=== PATIENT | male | born 1960 | race Caucasian/White ===

== ENCOUNTER → 2017-02-26 | Outpatient (CLI) | payer BC ==
[~2017-02-26] VITALS: Ht 167.6 cm; Wt 78.9 kg
[~2017-02-26] MED LIST: AUGMENTIN 875-1 EACH PO; ELIDEL CREAM 1%30 G1 TOP; FISH OIL 1,001000 M2 PO; FLEXERIL PO; FLOMAX0.4 MG PO; GEMFIBROZIL 60600 MG PO; GRALISE600 MG PO; HYDROCODONE-AP1 EA11 PO; MOBIC15 MG PO; NABUMETONE 500500 M1 PO; NEURONTIN 300300 M1 PO; NEURONTIN600 MG PO; NORCO 5-325 TA1 EACH PO; PREDNISONE 20 M20 MG PO; TRAMADOL 50 MG50 MG PO; VALACYCLOVIR1000 MG PO; VESICARE10 M1 PO
--- NOTE | ~2017-02-26 | HPC ---
[facility] [address] [place] [address] PAIN MANAGEMENT CONSULTATION Name: PAUL CACERES Room #: REG [facility] Noble.#: [id number] Admission: 02/26/17 Attend Phys: Avni Ordonez DO Discharge: Date of : 64 Report #: [id number] THIS REPORT FOR: //name// CC: Avni Pineda MD DATE OF SERVICE: 02/26/2017 REFERRING PHYSICIAN: Montse Pineda M.D. CHIEF COMPLAINT: Low back pain, lower extremity pain and paresthesias. HISTORY OF PRESENT ILLNESS: As you know, the patient is a very pleasant 56-year-old male who returns today in followup visit for medication management. The patient is being treated for symptomatic lumbar radiculopathy secondary to lumbosacral spondylosis with radicular components. The patient indicates good analgesic benefit with current medication management. He is denying any side effects of the medication. He states that he continues to work and is able to participate in daily activities with the use of the medication. He returns today requesting refill of the therapy. ALLERGIES: NABUMETONE. CURRENT MEDICATIONS: Hydrocodone, gabapentin, VESIcare, acyclovir, Elidel, omega 3 fish oil. SOCIAL HISTORY: The patient denies tobacco, alcohol, IV or illicit drug use. He is working, not receiving workmen's compensation. He is accompanied by his who is present in room today. IMAGING: No imaging available. PHYSICAL EXAMINATION: VITAL SIGNS: Blood pressure 150/76, pulse 54, respiratory rate 14, unlabored. The patient 99% on room air. Height 5 feet 6 inches tall, weight 174 pounds, BMI calculated 28.1. GENERAL: Well developed, well nourished, well hydrated, 56-year-old male. He appears stated age. He is placing current pain score at approximately 6/10. HEENT: Normocephalic, atraumatic. Pupils equal, round, reactive to light. Extraocular muscles are intact. EXTREMITIES: Show no clubbing, no cyanosis, no edema. MUSCULOSKELETAL: Seated straight leg raising negative. Supine straight leg raising positive on the left. Socorro's test negative. Modified Gaenslen's positive for axial low back pain. Gait, mildly antalgic favoring left lower extremity over right. He is not using an assistive device. [facility] and [address] [address] PAIN MANAGEMENT CONSULTATION Name: PAUL CACERES Room #: REG DARCY Lynne#: [id number] Admission: 02/26/17 Attend Phys: Avni Ordonez DO Discharge: Date of : 64 Report #: [id number] tone equal and symmetrical in lower extremities. ASSESSMENT: 1. Symptomatic lumbar radiculopathy. 2. Lumbosacral spondylosis with radicular symptoms. 3. Chronic intractable pain. PLAN: 1. The patient returns today in followup visit for medication management. The patient indicates pain is a level of 6/10 today. He indicates he has been quite active over the past couple of weeks and this has intensified his symptoms. He returns today requesting refill on medication. 2. The patient will submit urine drug screen as part of our opioid contract. The patient will undergo the urine drug screen today. We will review the findings once they are available. We will contact the patient with findings. 3. The patient was provided a prescription of gabapentin 600 mg dose 2 tabs p.o. at bedtime. I have given the patient #60 tablets with 2 refills, 3 months' worth of medication. 4. The patient was provided a refill prescription of hydrocodone 7.5/325 one tab p.o. q. 8 hours p.r.n. for pain, I have given the patient #90, releases of today, 4 weeks from today, 8 weeks from today, 3 months' worth of medication. 5. The patient will return to our clinic in 3 months for medication management, earlier if interventional treatments will be necessary. By: [id number] Avni Ordonez DO /nt
[2017-02-26 08:08] VITALS: BP 150/76
== END | disposition home or self-care (01) ==
LOC: PAIN 02-19 06:58
DX: M47.27 Other spondylosis with radiculopathy, lumbosacral region (principal); G89.29 Other chronic pain; F11.20 Opioid dependence, uncomplicated; Z87.891 Personal history of nicotine dependence; Z88.8 Allergy status to other drugs, medicaments and biological substances

== ENCOUNTER → 2017-05-28 | Outpatient (CLI) | payer BC ==
[~2017-05-28] VITALS: Ht 167.6 cm; Wt 76.2 kg
[~2017-05-28] MED LIST changes: +VENTOLIN HFA 1818 GM INH
--- NOTE | ~2017-05-28 | HPC ---
[facility] [address] [place] [address] PAIN MANAGEMENT CONSULTATION Name: PAUL CACERES [facility] [id number] Admission: 05/28/17 Attend Phys: Avni Ordonez DO Discharge: Date of : 64 Report #: [id number] THIS REPORT FOR: //name// CC: Avni Pineda MD DATE OF SERVICE: 05/28/2017 REFERRING PHYSICIAN: Montse Pineda MD CHIEF COMPLAINT: Low back pain, left lower extremity pain and paresthesias. HISTORY OF PRESENT ILLNESS: As you know, the patient is a 56-year-old male, returning in followup visit for medication management. He states his medications are working beneficially. He also returns today to review recent urine drug screen that was obtained at last visit. He indicates no change in his medical history except for a recent flu. He states his pain today as aching, throbbing and tingling. Places his current pain score 7/10. Lifting and sleeping exacerbates symptoms. Medications, repositioning and heat compresses appear to improve pain. He returns for refills of medication. ALLERGIES: NABUMETONE. CURRENT MEDICATIONS: Hydrocodone, gabapentin, VESIcare, acyclovir, Elidel, omega-3 fish oil. SOCIAL HISTORY: The patient denies tobacco, alcohol, IV or illicit drug use. He is working, not receiving workmen's compensation. Accompanied by his , who is present in room today. IMAGING: No new imaging available. PHYSICAL EXAMINATION: VITAL SIGNS: Blood pressure 146/82, pulse 79, respiratory rate 14 and unlabored. The patient is 100% on room air, height 5 feet 6 inches tall, weight 168 pounds, BMI calculated 27.1. GENERAL: Well developed, well nourished, well hydrated 56-year-old male who appears his stated age, placing current pain score 7/10. HEENT: Normocephalic, atraumatic. Pupils equal, round, reactive to light. Extraocular muscles are intact. EXTREMITIES: Show no clubbing, no cyanosis, no edema. MUSCULOSKELETAL: Lower extremity strength appears equal and symmetrical at 5/5, muscle bulk and tone equal and symmetrical in the lower extremities bilaterally. Seated straight leg raising negative. Supine straight leg raising mildly positive left. Socorro's test negative. Modified Gaenslen's positive for axial [address] [address] PAIN MANAGEMENT CONSULTATION Name: MORRISPAUL DARLING Room #: REG [facility] EST[facility]ERRom[facility] Batista#: [id number] Admission: 05/28/17 Attend Phys: Avni Ordonez DO Discharge: Date of : 64 Report #: [id number] low back pain. ASSESSMENT: 1. Symptomatic lumbar radiculopathy. 2. Lumbosacral spondylosis with radicular symptoms. 3. Chronic intractable pain. PLAN: 1. The patient returns today in followup visit for continuation of medication therapy. He feels medications are working beneficially, providing upwards of 70% improvement in overall pain. The patient and I discussed at length today the reason to continue medications at this time, the patient feels medications are working beneficially and does wish to continue therapy. 2. The patient was provided a prescription of hydrocodone 7.5/325 as one tab every 8 hours p.r.n. for pain, I have given the patient #90, releases of today, 4 weeks from today, 8 weeks from today, 3 months' worth of medication. 3. The patient was provided a prescription of gabapentin 600 mg dose 2 tabs p.o. at bedtime, #60 with 2 refills, 3 months' worth of medication. 4. The patient and I went over his urine drug screen. Urine drug screen shows positive for tetrahydrocannabinoid, a metabolite of marijuana. I have advised the patient of the illegality of the substance. The patient was advised that even though these substances are legal in various specific states, it is illegal in the states of [place] and [place], where I hold my licence. I advised the patient that the [facility] does not wish to have individuals for participating or partaking with illegal substances while taking controlled substances. I have advised the patient at this time that if a repeat drug screen is positive for tetrahydrocannabinoid in the future, then we would have to discontinue his opioid therapy. He states he understood. 5. We will see the patient back in followup visit in 3 months. <ELECTRONICALLY SIGNED> By: Avni Ordonez DO 05/28/17 1136 [id number] Avni Ordonez DO /nt
[2017-05-28 08:51] VITALS: BP 146/82
== END ==
LOC: PAIN 07:06
DX: M47.27 Other spondylosis with radiculopathy, lumbosacral region (principal); G89.29 Other chronic pain; Z88.8 Allergy status to other drugs, medicaments and biological substances; Z79.899 Other long term (current) drug therapy; Z79.891 Long term (current) use of opiate analgesic; Z87.891 Personal history of nicotine dependence; Z87.2 Personal history of diseases of the skin and subcutaneous tissue

== ENCOUNTER → 2018-01-29 | Outpatient (CLI) | payer BC, OTHER ==
[~2018-01-29] VITALS: Ht 167.6 cm; Wt 80.9 kg
--- NOTE | ~2018-01-29 | HPC ---
[facility] [place] [address] [place] [address] PAIN MANAGEMENT CONSULTATION Name: PAUL CACERES [facility] [id number] Admission: 01/29/18 Attend Phys: Avni Ordonez DO Discharge: Date of : 64 Report #: [id number] THIS REPORT FOR: //name// CC: Avni Pineda MD DATE OF SERVICE: 01/29/2018 CHIEF COMPLAINT: Low back pain, left lower extremity pain with paresthesias. HISTORY OF PRESENT ILLNESS: As you know, the patient is a very pleasant 57-year-old male returning in followup visit for continuation of medication therapy. The patient indicates medications are working beneficially for pain control. He returns today in followup visit requesting refill on medications. He is also here to review his urine drug screen from our visit of 08/21/2017. He indicates that he missed an appointment last month and had received refills from his primary care physician in regards to opioid medications. I have pointed out to the patient that this is in direct violation of the opioid contract with [facility]. He does indicate in the opioid contract that he has not received medications from any physician without expressed written or verbal consent from our clinic and he received neither. I have advised the patient of such today. I did discuss with the patient that if he wishes to change his care over to his PCP, we would have no problem releasing his care to her capable hands, but we cannot have 2 different physicians writing for the same medication. The patient indicates today pain level of 6/10, states pain is aching, throbbing and tingling, exacerbated with lifting and sitting, improves with medications, repositioning and heat. He returns requesting refill on medications. ALLERGIES: NABUMETONE. CURRENT MEDICATIONS: Hydrocodone, gabapentin, VESIcare, acyclovir, Elidel, omega 3 fish oil. SOCIAL HISTORY: The patient denies tobacco, alcohol, IV or illicit drug use. He is working, not receiving workmen's compensation, unaccompanied today. IMAGING: No new imaging available. PHYSICAL EXAMINATION: VITAL SIGNS: Blood pressure 130/70, pulse 49, respiratory rate 16, unlabored. The patient is 98% on room air. Height 5 feet 6 inches tall, weight 178.4 pounds, BMI calculated 28.8. GENERAL: Well-developed, well-nourished, well-hydrated 57-year-old male appearing stated age, no acute distress. Pain is rated at 6/10. [address] [address] PAIN MANAGEMENT CONSULTATION Name: PAUL CACERES Room #: REG [facility]#: [id number] Admission: 01/29/18 Attend Phys: Avni Ordonez DO Discharge: Date of : 64 Report #: [id number] HEENT: Normocephalic, atraumatic. Pupils are equal, round, reactive to light. EXTREMITIES: Show no clubbing, no cyanosis, no edema. MUSCULOSKELETAL: Lower extremity strength equal and symmetrical 5/5. He has no focal neurologic deficits. Seated straight leg raising negative. Supine straight leg raising mildly positive on the left. Gait normal, stance normal. Muscle bulk and tone equal and symmetrical. ASSESSMENT: 1. Chronic lumbar radiculopathy. 2. Lumbosacral spondylosis with radiculopathy. 3. Opioid dependency. 4. Chronic intractable pain. PLAN: 1. The patient has returned today in followup visit stating he has received recent refill from his primary care physician for hydrocodone. I have advised the patient this is in direct violation of the opioid contract with [facility]. He is not to receive medications from any other physician for any reason without express or written consent from [facility] in regards to opioid medications. I did express this to the patient today and advised him that this can no longer occur. Certainly, the patient can shift his care back to his PCP and I have offered to allow him to do so as he indicated it was much more convenient to see his PCP than it has been to follow up with our services. We have offered to release his care to his PCP and discontinue the opioid contract. He is going to consider this as an option. After a long discussion about our concerns about opioid medications, the patient chose to remain with us understanding that we will ultimately be releasing his care back to his PCP as we cannot continue to provide opioid medications in a stable individual that does not need the expertise of a pain specialist to provide. I have discussed this with the patient today. At present, we will continue to service the patient with his opioid medications with the understanding that ultimately he will be discharged back to his PCP. The patient was advised if any other aberrances are noted during treatment, we will have to dissolve the opioid agreement and release his care. 2. The patient's drug screen from last visit appears normal. He is showing positive for hydrocodone, gabapentin. He is not showing positive for any illicit substances or any substances that are not prescribed. This appears to be appropriate. 3. The patient was provided prescription of gabapentin 600 mg dose 2 tabs p.o. bedtime. I have given the patient #60, releases of today, 4 weeks from today, 8 weeks from today, 3 months' worth of medication. 4. The patient was provided prescription of hydrocodone 7.5/325 one tab every 8 hours p.r.n. for pain, #90 releases of today, 4 weeks from today, 8 weeks from today, 3 months' worth of medication. 5. The patient is going to consider his options for treatment. At present, he wishes to remain with our services, but understands that he is under opioid [address] [address] PAIN MANAGEMENT CONSULTATION Name: PAUL CACERES Room #: [facility] [id number] Admission: 01/29/18 Attend Phys: Avni Ordoenz DO Discharge: Date of : 64 Report #: [id number] contract and will be held to those contract stipulations. Any further deviation from the opioid stipulations will lead to dismissal. The patient was advised of such today. If he wishes to change to his PCP, he may do so and continue medication therapy as currently prescribed. We will allow the patient to consider this option and we will see him back in 3 months if he wishes to follow up with our clinic. <ELECTRONICALLY SIGNED> By: Avni Ordonez DO 02/04/18 0811 [id number] Avni Ordonez DO /nt
[2018-01-29 09:26] VITALS: BP 138/70
== END ==
LOC: PAIN 07:18
DX: M47.27 Other spondylosis with radiculopathy, lumbosacral region (principal); G89.4 Chronic pain syndrome; F11.20 Opioid dependence, uncomplicated

== ENCOUNTER → 2018-04-29 | Outpatient (CLI) | payer BC, OTHER ==
[~2018-04-29] VITALS: Ht 167.6 cm; Wt 81.4 kg
--- NOTE | ~2018-04-29 | HPC ---
[facility] [address] [address] PAIN MANAGEMENT CONSULTATION Name: MORRISPAUL DARLING Room #: REG [facility].#: [id number] Admission: 04/29/18 Attend Phys: Avni Ordonez DO Discharge: Date of : 64 Report #: [id number] THIS REPORT FOR: //name// CC: Avni Pineda DATE OF SERVICE: 04/30/2018 CHIEF COMPLAINT: Low back pain, left lower extremity pain and paresthesias. HISTORY OF PRESENT ILLNESS: As you know, the patient is a pleasant 57-year-old male who returns today in followup visit for continuation of medication therapy. The patient states that the medications are working beneficially for pain control. He states pain is around a 7/10, exacerbated with weather changes and getting up out of bed. When the patient takes his pain medications, his pain is at a level of 2/10. He feels these are quite beneficial. He returns today in followup visit, denying any side effects with therapy, requesting refill on medication management. ALLERGIES: NABUMETONE. CURRENT MEDICATIONS: Hydrocodone, gabapentin, VESIcare, acyclovir, Elidel, omega 3 fish oil. SOCIAL HISTORY: The patient denies tobacco, alcohol, IV or illicit drug use. He is working, not receiving workmen's compensation, unaccompanied today. IMAGING: No new imaging available. PHYSICAL EXAMINATION: VITAL SIGNS: Blood pressure 120/57, pulse 50, respiratory rate 16, unlabored, the patient's oxygen saturation 99% on room air. Height 5 feet 6 inches tall, weight 179.4 pounds, BMI calculated at 29.0. GENERAL: Well-developed, well-nourished, well-hydrated, 57-year-old male. He appears stated age, placing current pain score 3/10 with pain medications. At worst, pain has been at 7/10. HEENT: Head normocephalic, atraumatic. Pupils equal, round, reactive to light. Extraocular muscles are intact. Sclerae nonicteric, without injection. EXTREMITIES: Show no clubbing, no cyanosis, no edema. MUSCULOSKELETAL: Lower extremity strength appears equal and symmetrical 5/5, intact to light touch from L1 through S2 dermatomes. Seated straight leg raising negative. Supine straight leg raising mildly positive on the left. Socorro test is negative. ASSESSMENT: [address] [address] PAIN MANAGEMENT CONSULTATION Name: MORRISPAUL DARLING Room #: REG DARCY Lynne#: [id number] Admission: 04/29/18 Attend Phys: Avni Ordonez DO Discharge: Date of : 64 Report #: [id number] 1. Symptomatic lumbar radiculopathy. 2. Lumbosacral spondylosis with radiculopathy. 3. Opioid dependency. 4. Chronic intractable pain. PLAN: 1. We reviewed the fact that opiate medications are being used to provide analgesia adequate to support activities of daily living, not attempting to achieve a specific pain score on the 0-10 Visual Analog Scale. The current opiate medications are providing sufficient analgesia to allow the patient to participate in activities of daily living. The patient is not exhibiting any aberrant behavior suggestive of drug diversion. The patient is not having any adverse reactions to medications. The patient is not suffering from daytime somnolence or mental acuity changes. The patient is managing opiate-induced constipation with appropriate ofyh-ybl-scejvuj agents and dietary considerations. The patient was counseled on concern for caution with operating a motor vehicle while using opiate medications. A physical exam was performed and the patient's functional status was evaluated. All patients with back pain were advised against the bed rest greater than 4 days and were advised to return to normal activities. Pain score assessment was noted and the treatment plan was reviewed with the patient. All current medications, both prescribed and OTC were reviewed and reconciled on the electronic medical record. Tobacco screening was accomplished and smoking cessation was advised when indicated. BMI was noted and diet/exercise modification was recommended for all patients following outside normal parameters. I reviewed with the patient today their responsibilities to safeguard prescription medications, reviewed their responsibility to utilize medications only as prescribed by the physician. They are to seek and receive pain medications only from 1 physician group ( [facility]). They are to use 1 pharmacy and keep the clinic informed if they change pharmacies. Their responsibilities include making followup visits in a timely fashion and to avoid abrupt discontinuation of medication usage. Their responsibilities further include bringing their medications (bottles from the pharmacy with residual pills) to the visit for possible confirmation of pill counts and the patient understands it is their responsibility to submit to random drug screens to ensure both that the medications prescribed are present, and that no other controlled substances are present. All prescriptions provided today were generated electronically. 2. The patient returns today in followup visit for medication management. He feels medications are working beneficially. We have taken the liberty of having the patient undergo [place] [facility]acking for opioid medications. It does appear that he is receiving medications only through our services. He has filled prescriptions appropriately. There is no concerning entries in the tracking report. He has requested refill medication be provided today. 3. The patient was provided prescription for hydrocodone 7.5/325 one tab every [facility] [address] [place] [address] PAIN MANAGEMENT CONSULTATION Name: PAUL CACERES Room #: REG [facility] Dickey.#: [id number] Admission: 04/29/18 Attend Phys: Avni Ordonez DO Discharge: Date of : 64 Report #: [id number] 8 hours p.r.n. for pain, #90 releases of today and 4 weeks from today, 2 months' worth of medication. 4. The patient was provided prescription of gabapentin 600 mg dose 2 tabs p.o. at bedtime, #60, 2 refills. 5. The patient will return to our clinic in 3 months for medication therapy. By: [id number] Avni Ordonez DO /nt
[2018-04-29 09:56] VITALS: BP 120/57
== END ==
LOC: PAIN 06:57
DX: M47.27 Other spondylosis with radiculopathy, lumbosacral region (principal); G89.4 Chronic pain syndrome; F11.20 Opioid dependence, uncomplicated; Z79.899 Other long term (current) drug therapy

== ENCOUNTER → 2018-07-23 | Outpatient (CLI) | payer BC, OTHER ==
[~2018-07-23] VITALS: Ht 167.6 cm; Wt 81.9 kg
--- NOTE | ~2018-07-23 | HPC ---
[facility] [address] [address] PAIN MANAGEMENT CONSULTATION Name: MORRISPAUL DARLING Room #: REG [facility] Lynne#: [id number] Admission: 07/23/18 Attend Phys: Flores Donovan Discharge: Date of : 64 Report #: [id number] THIS REPORT FOR: //name// CC: Flores Donovan Montse Pineda DATE OF SERVICE: 07/23/2018 CHIEF COMPLAINT: Today, low back pain, left lower extremity pain and paresthesias. HISTORY OF PRESENT ILLNESS: This is a pleasant 57-year-old male returns to the clinic today for followup for his continuation of his medication management. He tells me that his pain score is an average of 7/10 in his left hip and buttock mostly today of throbbing pain. He says it is worse with moving and he has been working quite a bit long hours lately. 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 He says the medications are very helpful. He denies any constipation and uses some MiraLax to help if he has issues and denies daytime somnolence. ALLERGIES: NABUMETONE. CURRENT LIST OF MEDICATIONS: Hydrocodone 7.5/325 mg 2-3 tablets a day, gabapentin 600 mg tablets, takes two of them at bedtime, Ventolin inhaler, VESIcare 10 mg once a day, valacyclovir 1000 mg tablets twice a day as needed and fish oil daily. PQRS: 1. The patient has no history of osteoarthritis or rheumatoid arthritis. 2. Height is 5 feet 6 inches, weight is 180, BMI is 29.2. 3. Blood pressure is 121/48, pulse is 61, respirations 18, oxygen level is 97% on room air. 4. Pain score is 7/10. 5. Fall risk. Denies dizziness, does not need help walking or standing and he has not fallen in the last 3 months. 6. Denies blood thinners. 7. No history of hypertension. 8. Opioid therapy greater than 6 weeks and a signed opioid contract is on the chart. 9. Opioid risk assessment tool is low and his functional assessment is 20/70. 10. Recreational drug use, he denies. He is a former smoker and does not use alcohol currently. [place] PDMPs were checked. The patient is filling appropriate medicines from Dr. Avni Ordonez and has no aberrant off of medicines or fills. [address] [address] PAIN MANAGEMENT CONSULTATION Name: PAUL CACERES Room #: REG [facility].#: [id number] Admission: 07/23/18 Attend Phys: Flores Donovan Discharge: Date of : 64 Report #: [id number] The patient states that he does safeguard his medicine, keeps only when he needs in his pocket while he is working and does keep them safe at home. PHYSICAL EXAMINATION: GENERAL: Well-developed, well-nourished, well-hydrated 57-year-old male who appears his stated age, placing his pain score today at 7/10. HEENT: Head normocephalic, atraumatic. Pupils equal, reactive to light. Extraocular muscles are intact. MUSCULOSKELETAL: Lower extremity strength appear to be equal with symmetrical 5/5 strength. Seated leg raising was negative. The patient is able to move from standing to sitting without difficulty. He does have some tenderness in his left hip area. IMPRESSION: 1. Chronic lumbar radiculopathy. 2. Lumbosacral spondylosis with radiculopathy. 3. Opioid dependency. 4. Chronic intractable pain. We reviewed the fact that opiate medications are being used to provide analgesia adequate to support activities of daily living, not attempting to achieve a specific pain score on the 0-10 Visual Analog Scale. The current opiate medications are providing sufficient analgesia to allow the patient to participate in activities of daily living. The patient is not exhibiting any aberrant behavior suggestive of drug diversion. The patient is not having any adverse reactions to medications. The patient is not suffering from daytime somnolence or mental acuity changes. The patient is managing opiate-induced constipation with appropriate jnxx-hiy-ymfsdvb agents and dietary considerations. The patient was counseled on concern for caution with operating a motor vehicle while using opiate medications. A physical exam was performed and the patient's functional status was evaluated. All patients with back pain were advised against the bed rest greater than 4 days and were advised to return to normal activities. Pain score assessment was noted and the treatment plan was reviewed with the patient. All current medications, both prescribed and OTC were reviewed and reconciled on the electronic medical record. Tobacco screening was accomplished and smoking cessation was advised when indicated. BMI was noted and diet/exercise modification was recommended for all patients following outside normal parameters. I reviewed with the patient today their responsibilities to safeguard prescription medications, reviewed their responsibility to utilize medications only as prescribed by the physician. They are to seek and receive pain medications only from 1 physician group ([facility]). They are to use 1 pharmacy and keep the clinic informed if they change pharmacies. Their [address] [address] PAIN MANAGEMENT CONSULTATION Name: PAUL CACERES Room #: REG [facility] Batista#: [id number] Admission: 07/23/18 Attend Phys: Flores ROSALIO Venus Discharge: Date of : 64 Report #: [id number] responsibilities include making followup visits in a timely fashion and to avoid abrupt discontinuation of medication usage. Their responsibilities further include bringing their medications (bottles from the pharmacy with residual pills) to the visit for possible confirmation of pill counts and the patient understands it is their responsibility to submit to random drug screens to ensure both that the medications prescribed are present, and that no other controlled substances are present. All prescriptions provided today were generated electronically. PLAN: 1. The patient returns today stating he needs a refill of his current medications. He did get one in the past from his primary care, but then has been only getting them from Dr. Avni Ordonez. 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 Today, we will refill his gabapentin 600 mg 2 tablets at bedtime, quantity 60 with 2 additional refills and his hydrocodone 7.5/325 one every 8 hours, #90 for today, 4-week and 8-week. 2. The patient was instructed to only get his medications again from our office, from no other providers. The patient is agreeable with this. Regarding his opioid sign contract in the past, we will check a urine drug screen on his next visit to try and do this on a yearly timetable, which it will be due for his next appointment. The patient will be seen in 3 months and is agreeable with this plan of care. The patient was seen in collaboration today with Dr. Avni Ordonez. <ELECTRONICALLY SIGNED> By: Flores Donovan 07/25/18 0718 [id number] Flores Donovan /nt
[2018-07-23 09:56] VITALS: BP 121/48
== END ==
LOC: PAIN 06:42
DX: M47.27 Other spondylosis with radiculopathy, lumbosacral region (principal); G89.4 Chronic pain syndrome; F11.20 Opioid dependence, uncomplicated

== ENCOUNTER → 2018-10-21 | Outpatient (CLI) | payer BC, OTHER ==
[~2018-10-21] VITALS: Ht 167.6 cm; Wt 83.5 kg
[~2018-10-21] MED LIST changes: +TOLTERODINE TART2 MG PO
[2018-10-21 09:13] VITALS: BP 135/71
--- NOTE | 2018-10-21 09:19 | NUR ---
Pain Clinic Assessment: 1. History of Osteoarthritis: NO History of Rheumatoid Arthritis: NO 2. Height: 5 ft. 6 in. 167.6 cm. Weight: 184.0 lb. oz. 83.462 kg. Patient's BMI: 29.7 3. Vital Signs: BP: 135/71 Pulse: 68 Resp: 16 Temp: 02 Sat: 98 ECG Mon: 4. Pain Intensity: 7 5. Fall Risk: Dizziness: N Needs help standing or walking: N Fallen in the last 3 months: N Fall risk comments: 6. Patient on Blood Thinner: None 7. History of Hypertension: N 8. Opioid Therapy greater than 6 weeks: Y Opiate Contract Signed: 02/18/16 9. Risk Assessment Tool Provided: 0-LOW 10. Functional Assessment Tool: 64/70 11. Recreational Drug Use: Never Drug Type: Tobacco Use: Former Smoker Tobacco Type: Amount or Packs/day: How Many Years: Alcohol Use: No Frequency: Quant:
--- NOTE | 2018-10-23 09:58 | HPC ---
[facility] [address] [address] PAIN MANAGEMENT CONSULTATION Name: MORRISPAUL DARLING [id number] Admission: 10/21/18 Attend Phys: Flores Donovan Discharge: Date of : 64 Report #: [id number] THIS REPORT FOR: //name// CC: Flores Donovan Montse Pineda DATE OF SERVICE: 10/21/2018 CHIEF COMPLAINT: Low back pain, left lower extremity pain and paresthesias. HISTORY OF PRESENT ILLNESS: This is a very pleasant 57-year-old gentleman who returns to the pain clinic today for continuation of his medication management. He tells me that he is doing quite well, though his pain score today is 7-8. Due to weather changes, he tells me that makes it worse, also getting out of bed in the morning. He tells me that being very active is helpful. He complains mostly of soreness in his left hip and buttock. He denies any constipation or any daytime sleepiness, but he does tell me that the medications are very helpful in relieving some of his pain or at least decreasing it. He will just like a refill today. CURRENT LIST OF ALLERGIES: NABUMETONE. MEDICATION LIST: Hydrocodone 7.5/325 up to 3 times a day, tolterodine 2 mg b.i.d., gabapentin 600 mg 2 at bedtime, albuterol inhaler as needed, valacyclovir 1000 mg twice a day, fish oil daily. PQRS: 1. He has no history of osteoarthritis or rheumatoid arthritis. 2. Height is 5 feet 6 inches, weight is 184, BMI is 29.7. 3. Vital Signs: Blood pressure 135/71, pulse is 68, respirations 16, oxygen sat is 98%. 4. Pain score is 7/10. 5. Fall risk. Denies dizziness, does not need help walking or standing. He has not fallen in the last 3 months. 6. He is not on any blood thinners. He does not have a history of hypertension. 7. His opiate therapy is greater than 6 weeks, therefore an opioid signed contract is on the chart. 8. Risk assessment tool is low. Functional assessment is 64/70. 9. Recreational drug use, the patient denies. He is a former smoker and does not drink alcohol. We did check the prescription monitoring system. The patient filling appropriately from Dr. Ordonez. He tells me he safeguards his medications. We will check a drug screen on this patient today. The last one was greater than 1-[place] [address] PAIN MANAGEMENT CONSULTATION Name: PAUL CACERES Room #: REG [facility] Batista#: [id number] Admission: 10/21/18 Attend Phys: Flores Donovan Discharge: Date of : 64 Report #: [id number] PHYSICAL EXAMINATION: GENERAL: This is a well-developed, well-nourished, well well-hydrated 57-year-old that appears his stated age, is slightly younger, placing his pain score today is 7/10. HEENT: Normocephalic, atraumatic. Pupils equal, round and reactive to light. Extraocular eye muscles are intact. Hearing is adequate. MUSCULOSKELETAL: Lower extremity strength appear to be equal and symmetrical at 5/5. The patient is able to move from sitting to standing without difficulty. He complains of slight tenderness in his lower calf today. ASSESSMENT: 1. Chronic lumbar radiculopathy. 2. Lumbosacral spondylosis with radiculopathy. 3. Opioid dependency. 4. Chronic intractable pain. We reviewed the fact that opiate medications are being used to provide analgesia adequate to support activities of daily living, not attempting to achieve a specific pain score on the 0-10 Visual Analog Scale. The current opiate medications are providing sufficient analgesia to allow the patient to participate in activities of daily living. The patient is not exhibiting any aberrant behavior suggestive of drug diversion. The patient is not having any adverse reactions to medications. The patient is not suffering from daytime somnolence or mental acuity changes. The patient is managing opiate-induced constipation with appropriate txpe-gff-aiqmhsc agents and dietary considerations. The patient was counseled on concern for caution with operating a motor vehicle while using opiate medications. A physical exam was performed and the patient's functional status was evaluated. All patients with back pain were advised against the bed rest greater than 4 days and were advised to return to normal activities. Pain score assessment was noted and the treatment plan was reviewed with the patient. All current medications, both prescribed and OTC were reviewed and reconciled on the electronic medical record. Tobacco screening was accomplished and smoking cessation was advised when indicated. BMI was noted and diet/exercise modification was recommended for all patients following outside normal parameters. I reviewed with the patient today their responsibilities to safeguard prescription medications, reviewed their responsibility to utilize medications only as prescribed by the physician. They are to seek and receive pain medications only from 1 physician group ([facility]). They are to use 1 pharmacy and keep the clinic informed if they change pharmacies. Their responsibilities include making followup visits in a timely fashion and to avoid abrupt discontinuation of medication usage. Their responsibilities further [address] [address] PAIN MANAGEMENT CONSULTATION Name: PAUL CACERES Room #: REG [facility] Batista#: [id number] Admission: 10/21/18 Attend Phys: Flores Donovan Discharge: Date of : 64 Report #: [id number] include bringing their medications (bottles from the pharmacy with residual pills) to the visit for possible confirmation of pill counts and the patient understands it is their responsibility to submit to random drug screens to ensure both that the medications prescribed are present, and that no other controlled substances are present. All prescriptions provided today were generated electronically. PLAN: 1. We discussed treatment options with the patient today. He would like a refill of his current medications. Scripts will be given today for hydrocodone 7.5/325 one every 8 hours, #90 for release today, 4 and 8-week. Gabapentin will also be refilled as 600 mg 2 tablets at bedtime, quantity 60 with 2 additional refills. We discussed the patient's MME per the CDC guidelines, he falls at 33 MME per day, which is well under the CDC guidelines of 50 or below, so therefore that is why we gave him 3 months of medications. 2. We did check a drug screen on this patient today since it had been greater than a year since his last check. 3. The patient is seen in collaboration today with Dr. Avni Ordonez. <ELECTRONICALLY SIGNED> By: Flores Donovan 10/23/18 0958 1029 1145 Flores Donovan /shanelle
== END ==
LOC: PAIN 06:41
DX: M47.27 Other spondylosis with radiculopathy, lumbosacral region (principal); G89.4 Chronic pain syndrome; F11.20 Opioid dependence, uncomplicated; Z79.899 Other long term (current) drug therapy

== ENCOUNTER → 2019-01-20 | Outpatient (CLI) | payer BC, OTHER ==
[~2019-01-20] VITALS: Ht 167.6 cm; Wt 83.5 kg
[2019-01-20 09:18] VITALS: BP 148/79
--- NOTE | 2019-01-20 09:26 | NUR ---
Pain Clinic Assessment: 1. History of Osteoarthritis: NO History of Rheumatoid Arthritis: NO 2. Height: 5 ft. 6 in. 167.6 cm. Weight: 184.0 lb. oz. 83.462 kg. Patient's BMI: 29.7 3. Vital Signs: BP: 148/79 Pulse: 63 Resp: 16 Temp: 02 Sat: 100 ECG Mon: 4. Pain Intensity: 8 5. Fall Risk: Dizziness: N Needs help standing or walking: N Fallen in the last 3 months: N Fall risk comments: 6. Patient on Blood Thinner: None 7. History of Hypertension: N 8. Opioid Therapy greater than 6 weeks: Y Opiate Contract Signed: 02/18/16 9. Risk Assessment Tool Provided: 0-LOW 10. Functional Assessment Tool: 64/70 11. Recreational Drug Use: Never Drug Type: Tobacco Use: Former Smoker Tobacco Type: Amount or Packs/day: How Many Years: Alcohol Use: No Frequency: Quant:
--- NOTE | 2019-01-21 14:32 | HPC ---
[facility] [address] [place] [address] PAIN MANAGEMENT CONSULTATION Name: MORRISPAUL DARLING Room #: REG [facility] Lynne#: [id number] Admission: 01/20/19 ������������������ Attend Phys: Flores Donovan Discharge: ������������������ Date of : 64 Report #: [id number] THIS REPORT FOR: //name// CC: Flores Donovan Montse Pineda DATE OF SERVICE: 01/20/2019 CHIEF COMPLAINT: Low back pain and left hip-buttock pain. HISTORY OF PRESENT ILLNESS: This is a very pleasant 58-year-old gentleman who returns to the pain clinic today for a refill of his medications for his ongoing back pain and left hip pain. He is rating his pain score an 8/10 today. He said it is worse with weather changes and walking quite a bit at [employer] for his job. He tells me his medications are very helpful to keep him active and keep him working. He denies any problems with constipation or daytime sleepiness. He said things had been going quite well for him. He would just like a refill of his medications today. ALLERGIES: NABUMETONE. CURRENT MEDICATIONS: Gabapentin 600 mg 2 at bedtime, hydrocodone 7.5/325 up to 3 times a day, tolterodine 2 mg b.i.d., albuterol inhaler as needed, valacyclovir 1000 mg b.i.d. p.r.n. and fish oil daily. PQRS REPORT: 1. He has no history of osteoarthritis or rheumatoid arthritis. 2. Height is 5 feet 6 inches, weight is 184 and BMI is 29. 3. Vital signs, 148/79, pulse is 63, respirations 16 and oxygen sat 100. 4. Pain score is an 8/10. 5. Fall risk, denies dizziness, does not need help with walking or standing and has not fallen in the last 3 months. 6. The patient does not take any medicines for hypertension or blood thinners. 7. Opioid therapy is greater than 6 weeks; therefore, an opioid signed contract is on the chart. His risk assessment tool is low. His functional assessment is 64/70. 8. Recreational drug use, he denies. He is a former smoker and does not drink alcohol. We did check the prescription monitoring system. The patient is filling appropriately and is on time for his medication refill. He tells me he does safeguard his medications. We did check a random drug screen on him in his last visit, which is appropriate and is on the chart. PHYSICAL EXAMINATION: GENERAL: This is a well-developed, well-nourished and well-hydrated 58[place] [address] PAIN MANAGEMENT CONSULTATION Name: PAUL CACERES Room #: REG [facility] Batista#: [id number] Admission: 01/20/19 ������������������ Attend Phys: Flores Donovan Discharge: ������������������ Date of : 64 Report #: [id number] gentleman who appears his stated age, placing his pain score today at 8/10. HEENT: Normocephalic, atraumatic. Pupils equal, round and reactive to light. Hearing is adequate. Mucous membranes are moist. MUSCULOSKELETAL: Lower extremity strength judged to be equal and symmetrical at 5/5. Complains of some left hip pain today that does not radiate down into his leg. He is able to move from sitting to standing without any difficulty. He has a normal gait. ASSESSMENT: 1. Chronic lumbar radiculopathy. 2. Lumbosacral spondylosis with radiculopathy. 3. Opioid dependency. 4. Chronic intractable pain. We reviewed the fact that opiate medications are being used to provide analgesia adequate to support activities of daily living, not attempting to achieve a specific pain score on the 0-10 Visual Analog Scale. The current opiate medications are providing sufficient analgesia to allow the patient to participate in activities of daily living. The patient is not exhibiting any aberrant behavior suggestive of drug diversion. The patient is not having any adverse reactions to medications. The patient is not suffering from daytime somnolence or mental acuity changes. The patient is managing opiate-induced constipation with appropriate kkyq-ozn-siyncww agents and dietary considerations. The patient was counseled on concern for caution with operating a motor vehicle while using opiate medications. A physical exam was performed and the patient's functional status was evaluated. All patients with back pain were advised against the bed rest greater than 4 days and were advised to return to normal activities. Pain score assessment was noted and the treatment plan was reviewed with the patient. All current medications, both prescribed and OTC were reviewed and reconciled on the electronic medical record. Tobacco screening was accomplished and smoking cessation was advised when indicated. BMI was noted and diet/exercise modification was recommended for all patients following outside normal parameters. I reviewed with the patient today their responsibilities to safeguard prescription medications, reviewed their responsibility to utilize medications only as prescribed by the physician. They are to seek and receive pain medications only from 1 physician group ([facility]). They are to use 1 pharmacy and keep the clinic informed if they change pharmacies. Their responsibilities include making followup visits in a timely fashion and to avoid abrupt discontinuation of medication usage. Their responsibilities further include bringing their medications (bottles from the pharmacy with residual pills) to the visit for possible confirmation of pill counts and the patient understands it is their responsibility to submit to random drug screens to [place] [id number] PAIN MANAGEMENT CONSULTATION Name: PAUL CACERES [facility] [id number] Admission: 01/20/19 ������������������ Attend Phys: Flores Donovan Discharge: ������������������ Date of : 64 Report #: [id number] ensure both that the medications prescribed are present, and that no other controlled substances are present. All prescriptions provided today were generated electronically. PLAN: 1. We discussed treatment options with the patient today. The patient is requesting refills for his medications, which were given for hydrocodone 7.5/325, #90. This places his current morphine milliequivalents per the CDC guidelines at 33. 2. Gabapentin 600 mg 2 tablets at bedtime, quantity 60, with 2 additional refills. 3. We did discuss his random drug screen that was done on the last visit that showed it was appropriate for all of his medications. 4. The patient will be seen in followup in 3-month time period. He was instructed to make an appointment when he filled his last medications. At that time, he will see Dr. Avni Ordonez. 5. The patient is seen in collaboration today with Dr. Avni Ordonez, who did see the patient as well. ��������������������������������������������� <ELECTRONICALLY SIGNED> ���������������������������������������� By: Flores Donovan ��������������������������������������������� 01/21/19 1432 [id number] Flores Donovan /shanelle
== END ==
LOC: PAIN 06:57
DX: M47.27 Other spondylosis with radiculopathy, lumbosacral region (principal); G89.4 Chronic pain syndrome; F11.20 Opioid dependence, uncomplicated; Z79.899 Other long term (current) drug therapy

== ENCOUNTER → 2019-04-14 | Outpatient (CLI) | payer BC, OTHER ==
[~2019-04-14] VITALS: Ht 167.6 cm; Wt 79.4 kg
[2019-04-14 08:40] VITALS: BP 138/59
--- NOTE | 2019-04-14 08:49 | NUR ---
Pain Clinic Assessment: 1. History of Osteoarthritis: NO History of Rheumatoid Arthritis: NO 2. Height: 5 ft. 6 in. 167.6 cm. Weight: 175.0 lb. oz. 79.380 kg. Patient's BMI: 28.3 3. Vital Signs: BP: 138/59 Pulse: 56 Resp: 14 Temp: 02 Sat: 99 ECG Mon: 4. Pain Intensity: 8 5. Fall Risk: Dizziness: N Needs help standing or walking: N Fallen in the last 3 months: N Fall risk comments: 6. Patient on Blood Thinner: None 7. History of Hypertension: N 8. Opioid Therapy greater than 6 weeks: Y Opiate Contract Signed: 02/18/16 9. Risk Assessment Tool Provided: 0-LOW 10. Functional Assessment Tool: 64/70 11. Recreational Drug Use: Never Drug Type: Tobacco Use: Former Smoker Tobacco Type: Amount or Packs/day: How Many Years: Alcohol Use: No Frequency: Quant:
--- NOTE | 2019-04-14 13:01 | HPC ---
[facility] [address] [address] PAIN MANAGEMENT CONSULTATION Name: MORRISPAUL DARLING Room #: REG [facility] Lynne#: [id number] Admission: 04/14/19 ������������������ Attend Phys: Flores Donovan Discharge: ������������������ Date of : 64 Report #: [id number] THIS REPORT FOR: //name// CC: Flores Pineda DATE OF SERVICE: 04/14/2019 CHIEF COMPLAINT: Low back pain with left buttock and hip pain. HISTORY OF PRESENT ILLNESS: This is a very pleasant 58-year-old gentleman who returns to the pain clinic today for refill of his medications that he uses to treat for his ongoing low back and left hip pain. Today, the patient tells me his pain score is an 8/10. It is a throbbing, soreness pain, especially when he is working or walking. His medications are very helpful. He tells me that he is having a flare up of his eczema and he is itching all over. This is making his pain worse. He feels like he needs another steroid injection from Dr. Pineda that he has been using to help treat his eczema. He is going to see her hopefully today before he goes out of town for work later today. The patient tells me that he has no problems with overmedication or constipation from this medication. 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 ALLERGIES: NABUMETONE. CURRENT LIST OF MEDICATIONS: Hydrocodone 7.5/325 t.i.d. p.r.n., gabapentin 1200 mg at bedtime, tolterodine tartate 2 mg b.i.d., albuterol inhaler p.r.n., valacyclovir p.r.n. and fish oil. PQRS REVIEW: 1. He denies any history of osteoarthritis or rheumatoid arthritis. 2. His height is 5 feet 6 inches, weight is 175, BMI is 28. 3. Vital signs, 138/59, pulse is 56, respirations 14 and oxygen sat is 99. 4. Pain score is 8/10. 5. Fall risk, denies dizziness, does not need help walking or standing, has not fallen in the last 3 months. 6. The patient is not on any blood thinners. He does not take medicine for hypertension. 7. Opioid therapy is greater than 6 weeks; therefore, an opioid signed contract is on the chart. Risk assessment tool is low. Functional assessment is 64/70. 8. Recreational drug use, he denies. He is a former smoker and does not drink alcohol. We did check the prescription monitoring system. The patient is filling [address] [address] PAIN MANAGEMENT CONSULTATION Name: PAUL CACERES [id number] Admission: 04/14/19 ������������������ Attend Phys: Flores Donovan Discharge: ������������������ Date of : 64 Report #: [id number] appropriately for his medication and is due for those today. There is a recent drug screen on the chart that is appropriate for his medications as well. He tells me he safeguards his medicines, especially when he is traveling. PHYSICAL EXAMINATION: GENERAL: This is a well-developed, well-nourished and well-hydrated 58-year-old gentleman, who appears his stated age, placing his current pain score at 8/10. HEENT: Normocephalic, atraumatic. Pupils are equal, round and reactive to light. Mucous membranes are moist. SKIN: Complains of itchiness. He does have a reddened area on the lateral part of his face. The patient states he suffers from eczema. MUSCULOSKELETAL: Lower extremity strength judged to be equal and symmetrical at 5/5. Pain radiates from his lower back into his left hip into his buttock, but not into his leg currently. He is able to move from sitting to standing without difficulty and he has a normal gait. ASSESSMENT: 1. Chronic lumbar radiculopathy. 2. Lumbosacral spondylosis with radiculopathy. 3. Opioid dependency. 4. Chronic intractable pain. We reviewed the fact that opiate medications are being used to provide analgesia adequate to support activities of daily living, not attempting to achieve a specific pain score on the 0-10 Visual Analog Scale. The current opiate medications are providing sufficient analgesia to allow the patient to participate in activities of daily living. The patient is not exhibiting any aberrant behavior suggestive of drug diversion. The patient is not having any adverse reactions to medications. The patient is not suffering from daytime somnolence or mental acuity changes. The patient is managing opiate-induced constipation with appropriate styl-fss-bjowlol agents and dietary considerations. The patient was counseled on concern for caution with operating a motor vehicle while using opiate medications. A physical exam was performed and the patient's functional status was evaluated. All patients with back pain were advised against the bed rest greater than 4 days and were advised to return to normal activities. Pain score assessment was noted and the treatment plan was reviewed with the patient. All current medications, both prescribed and OTC were reviewed and reconciled on the electronic medical record. Tobacco screening was accomplished and smoking cessation was advised when indicated. BMI was noted and diet/exercise modification was recommended for all patients following outside normal parameters. I reviewed with the patient today their responsibilities to safeguard prescription medications, reviewed their responsibility to utilize medications [facility] [address] [place] [address] PAIN MANAGEMENT CONSULTATION Name: MORRISPAUL DARLING Room #: REG [facility].#: [id number] Admission: 04/14/19 ������������������ Attend Phys: Flores Donovan Discharge: ������������������ Date of : 64 Report #: [id number] only as prescribed by the physician. They are to seek and receive pain medications only from 1 physician group ( [facility]). They are to use 1 pharmacy and keep the clinic informed if they change pharmacies. Their responsibilities include making followup visits in a timely fashion and to avoid abrupt discontinuation of medication usage. Their responsibilities further include bringing their medications (bottles from the pharmacy with residual pills) to the visit for possible confirmation of pill counts and the patient understands it is their responsibility to submit to random drug screens to ensure both that the medications prescribed are present, and that no other controlled substances are present. All prescriptions provided today were generated electronically. PLAN: 1. We discussed treatment options with the patient today. The patient tells me his medication is very beneficial. Refills given today for hydrocodone 7.5/325, #90, release for today, 4 and 8-week. This places the patient at 22.5 morphine milligram milliequivalents according to the CDC guidelines. 2. Prescriptions given for gabapentin 600 mg 2 at bedtime, #60 with 2 additional refills. 3. The patient encouraged to see primary care doctor regarding his eczema and his steroid injection. 4. The patient will return in 3 months' time period. The patient is seen today in collaboration with Dr. Avni Ordonez. ��������������������������������������������� <ELECTRONICALLY SIGNED> ���������������������������������������� By: Flores Donovan ��������������������������������������������� 04/14/19 1301 [id number] [id number] Flores Donovan /nt
== END ==
LOC: PAIN 06:54
DX: M47.26 Other spondylosis with radiculopathy, lumbar region (principal); Z79.891 Long term (current) use of opiate analgesic; G89.29 Other chronic pain

== ENCOUNTER → 2019-07-14 | Outpatient (CLI) | payer BC, OTHER ==
[~2019-07-14] VITALS: Ht 167.6 cm; Wt 80.8 kg
[~2019-07-14] MED LIST changes: +GABAPENTIN600 M1 PO
[2019-07-14 09:22] VITALS: BP 133/64
--- NOTE | 2019-07-14 09:38 | NUR ---
Pain Clinic Assessment: 1. History of Osteoarthritis: Not Applicable History of Rheumatoid Arthritis: Not Applicable 2. Height: 5 ft. 6 in. 167.6 cm. Weight: 178.2 lb. oz. 80.831 kg. Patient's BMI: 28.8 3. Vital Signs: BP: 133/64 Pulse: 65 Resp: 16 Temp: 02 Sat: 100 ECG Mon: 4. Pain Intensity: 7 5. Fall Risk: Dizziness: N Needs help standing or walking: N Fallen in the last 3 months: N Fall risk comments: 6. Patient on Blood Thinner: None 7. History of Hypertension: N 8. Opioid Therapy greater than 6 weeks: Y Opiate Contract Signed: 02/18/16 9. Risk Assessment Tool Provided: 0-LOW 10. Functional Assessment Tool: 64/70 11. Recreational Drug Use: Never Drug Type: Tobacco Use: Former Smoker Tobacco Type: Amount or Packs/day: How Many Years: Alcohol Use: No Frequency: Quant:
--- NOTE | 2019-07-14 13:55 | HPC ---
[facility] [address] [place] [address] PAIN MANAGEMENT CONSULTATION Name: MORRISPAUL DARLING Room #: REG [facility].#: [id number] Admission: 07/14/19 Attend Phys: Flores Donovan Discharge: Date of : 64 Report #: [id number] THIS REPORT FOR: //name// CC: Flores Donovan Montse Pineda DATE OF SERVICE: 07/14/2019 CHIEF COMPLAINT: Low back pain and left buttock and hip pain. HISTORY OF PRESENT ILLNESS: This is a 58-year-old gentleman who returns to the pain clinic today for ongoing chronic pain issues in his left hip and leg as well as his lower back. He rates his pain score is 7/10, which is slightly higher than normal. He feels that the weather changes have increased it slightly. It is a sharp, cramping, tender pain mostly in his left hip that radiates to his calf and is aggravated by walking, but better with his medication and sitting. He feels that the gabapentin as well as his hydrocodone are very beneficial. He denies any problems with constipation or daytime sleepiness. He tells me he is scheduled to have a colonoscopy as a routine visit in the next few weeks and he has recently had his flu shot for the year. ALLERGIES: NABUMETONE. CURRENT LIST OF MEDICATIONS: Gabapentin 600 mg 2 at bedtime, hydrocodone 7.5/325 t.i.d. p.r.n., tolterodine 2 mg daily, valacyclovir 1000 mg b.i.d. and fish oil. PQRS: 1. He denies a history of rheumatoid arthritis or osteoarthritis. 2. Height is 5 feet 6 inches, weight is 178, BMI is 28. 3. Vital signs: 133/64, pulse is 65, respirations 16, oxygen sat is 100. 4. Pain score is 7/10. 5. Denies dizziness, does not need help walking or standing, has not fallen in the last 3 months. 6. The patient is not on any blood thinners or medicine for hypertension. 7. Opioid therapy is greater than 6 weeks; therefore, an opioid signed contract is on the chart. 8. Risk assessment tool is low. Functional assessment is 64/70. 9. Recreational drug use, he denies. He is a former smoker and does not drink alcohol. According to the prescription monitoring system, the patient is filling appropriately for his medications. There is a recent drug screen on the chart that is appropriate as well. PHYSICAL EXAMINATION: [facility] [address] [place] [address] PAIN MANAGEMENT CONSULTATION Name: MORRISPAUL ONEILLW Room #: REG [facility] Batista#: [id number] Admission: 07/14/19 Attend Phys: Floers Donovan Discharge: Date of : 64 Report #: [id number] GENERAL: This is a well-developed, well-nourished and well-hydrated 58-year-old gentleman who appears his stated age, placing his current pain score at 7/10 today. HEENT: Normocephalic, atraumatic. Extraocular eye muscles are intact. Mucous membranes are moist. MUSCULOSKELETAL: Lower extremity strength is judged to be equal and symmetrical at 5/5. He has pain in his lower back that radiates down his left hip into his buttock. He is able to move from sitting to standing without difficulty. He has a normal gait. IMPRESSION: 1. Chronic lumbar radiculopathy. 2. Lumbosacral spondylosis with radiculopathy. 3. Opioid dependency. 4. Chronic intractable pain. 5. Opioid management under high risk medications. We reviewed the fact that opiate medications are being used to provide analgesia adequate to support activities of daily living, not attempting to achieve a specific pain score on the 0-10 Visual Analog Scale. The current opiate medications are providing sufficient analgesia to allow the patient to participate in activities of daily living. The patient is not exhibiting any aberrant behavior suggestive of drug diversion. The patient is not having any adverse reactions to medications. The patient is not suffering from daytime somnolence or mental acuity changes. The patient is managing opiate-induced constipation with appropriate tzqs-olp-teokcuf agents and dietary considerations. The patient was counseled on concern for caution with operating a motor vehicle while using opiate medications. A physical exam was performed and the patient's functional status was evaluated. All patients with back pain were advised against the bed rest greater than 4 days and were advised to return to normal activities. Pain score assessment was noted and the treatment plan was reviewed with the patient. All current medications, both prescribed and OTC were reviewed and reconciled on the electronic medical record. Tobacco screening was accomplished and smoking cessation was advised when indicated. BMI was noted and diet/exercise modification was recommended for all patients following outside normal parameters. I reviewed with the patient today their responsibilities to safeguard prescription medications, reviewed their responsibility to utilize medications only as prescribed by the physician. They are to seek and receive pain medications only from 1 physician group ([facility]). They are to use 1 pharmacy and keep the clinic informed if they change pharmacies. Their responsibilities include making followup visits in a timely fashion and to avoid abrupt discontinuation of medication usage. Their responsibilities further [facility] [address] [place] [address] PAIN MANAGEMENT CONSULTATION Name: PAUL CACERES Room #: REG [facility]LR[facility] Batista#: [id number] Admission: 07/14/19 Attend Phys: Flores Donovan Discharge: Date of : 64 Report #: [id number] include bringing their medications (bottles from the pharmacy with residual pills) to the visit for possible confirmation of pill counts and the patient understands it is their responsibility to submit to random drug screens to ensure both that the medications prescribed are present, and that no other controlled substances are present. All prescriptions provided today were generated electronically. PLAN: 1. We discussed treatment options with the patient today. We will continue his hydrocodone 7.5/325, #90 for today, 4-week and 8-week release. This places him at 22 morphine mEq a day according to the CDC guidelines. 2. Scripts given for gabapentin 600 mg 2 tablets at bedtime, #60 with 2 additional refills given. 3. We did discuss constipation issues with the patient. He currently takes some vdsj-dqq-ivjwbsc medication. He is going to have his colonoscopy done for first time in a few weeks. I encouraged him to use clear liquids for 2 days to help make the prep easier on him and to continue his Colace as needed. 4. The patient will return in 3 months as needed. The patient is seen in collaboration today with Dr. Avni Ordonez who did see the patient as well. <ELECTRONICALLY SIGNED> By: Flores Donovan 07/14/19 1355 1131 [id number] Flores Donovan /shanelle
== END ==
LOC: PAIN 06:48
DX: M47.26 Other spondylosis with radiculopathy, lumbar region (principal); M47.817 Spondylosis without myelopathy or radiculopathy, lumbosacral region; F11.20 Opioid dependence, uncomplicated; G89.4 Chronic pain syndrome; Z88.8 Allergy status to other drugs, medicaments and biological substances; Z79.899 Other long term (current) drug therapy

== ENCOUNTER → 2019-10-07 | Outpatient (CLI) | payer BC, OTHER ==
[~2019-10-07] VITALS: Ht 167.6 cm; Wt 81.2 kg
[2019-10-07 09:59] VITALS: BP 153/95
--- NOTE | 2019-10-07 10:15 | NUR ---
Pain Clinic Assessment: 1. History of Osteoarthritis: Not Applicable History of Rheumatoid Arthritis: Not Applicable 2. Height: 5 ft. 6 in. 167.6 cm. Weight: 179.0 lb. oz. 81.194 kg. Patient's BMI: 28.9 3. Vital Signs: BP: 153/95 Pulse: 62 Resp: 14 Temp: 02 Sat: 99 ECG Mon: 4. Pain Intensity: 7 5. Fall Risk: Dizziness: N Needs help standing or walking: N Fallen in the last 3 months: N Fall risk comments: 6. Patient on Blood Thinner: None 7. History of Hypertension: N 8. Opioid Therapy greater than 6 weeks: Y Opiate Contract Signed: 02/18/16 9. Risk Assessment Tool Provided: 0-LOW 10. Functional Assessment Tool: 64/70 11. Recreational Drug Use: Never Drug Type: Tobacco Use: Former Smoker Tobacco Type: Amount or Packs/day: How Many Years: Alcohol Use: No Frequency: Quant:
--- NOTE | 2019-10-08 08:22 | HPC ---
[facility] [address] [address] PAIN MANAGEMENT CONSULTATION Name: PAUL CACERES [facility]: [facility] [id number] Admission: 10/07/19 Attend Phys: Flores Donovan Discharge: Date of : 64 Report #: [id number] THIS REPORT FOR: //name// CC: Flores Guallpa MD DATE OF SERVICE: 10/07/2019 CHIEF COMPLAINT: Chronic low back pain, left buttock pain. HISTORY OF PRESENT ILLNESS: This is a 58-year-old gentleman who returns to the pain clinic today for medication renewal for his chronic low back pain and left hip pain. He reports his pain radiates down his left leg to his ankle. It is a cramping, tender, sharp pain, rating at a 7/10 today. It is worse with activity and walking, better with his medication and sitting. He is quite active with his job. 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 He does report that sometimes he feels that his leg has more numbness during the day and is wondering about possibly increasing his gabapentin. He denies any problems with daytime sleepiness or constipation issues as a result of his medications. ALLERGIES: Nabumetone. CURRENT LIST OF MEDICATIONS: Gabapentin 1200 mg daily, hydrocodone 7.5/325 p.r.n., tolterodine tartrate, Ventolin inhalers, and fish oil. PQRS: 1. The patient denies any problems with osteoarthritis or rheumatoid arthritis. 2. Height is 5 feet 6 inches, weight is 179, BMI is 28. 3. Vital signs 153/95, pulse is 62, respirations 14, oxygen sat is 99. 4. Pain score is 7/10. 5. Denies dizziness, does not need help walking or standing, has not fallen in the last 3 months. 6. The patient is not on blood thinners and does not take medicine for hypertension. His opioid therapy is greater than 6 weeks; therefore, an opioid signed contract is on the chart. Risk assessment tool is low. Functional assessment 64/70. 7. Recreational drug use, he denies. He is a former smoker and does not drink alcohol. According to the prescription monitoring system, the patient is due to fill his medications later this week. He is filling from one provider. His current morphine mEq is 22 according to the CDC guidelines. There is a drug screen on [address] [address] PAIN MANAGEMENT CONSULTATION Name: PAUL CACERES PHONG Room #: REG [facility]#: [id number] Admission: 10/07/19 Attend Phys: Flores Donovan Discharge: Date of : 64 Report #: [id number] the chart that is appropriate as well. PHYSICAL EXAMINATION: GENERAL: This is alert and orientated, slightly nervous acting 58-year-old gentleman who appears his stated age, placing his current pain score at 7/10 today. HEENT: Normocephalic, atraumatic. Extraocular eye muscles are intact. Mucous membranes are moist. MUSCULOSKELETAL: He has tenderness in his lumbar spine that radiates down his left hip into his buttock radiating down to his calf following the L4-L5 and L5-S1 dermatomal distribution. He walks with a normal gait. His lower extremity strength judged to be 5/5. IMPRESSION: 1. Chronic lumbar radiculopathy. 2. Lumbosacral spondylosis with radiculopathy. 3. Chronic intractable pain. 4. Opioid dependency. 5. Opioid management under written opioid agreement. We reviewed the fact that opiate medications are being used to provide analgesia adequate to support activities of daily living, not attempting to achieve a specific pain score on the 0-10 Visual Analog Scale. The current opiate medications are providing sufficient analgesia to allow the patient to participate in activities of daily living. The patient is not exhibiting any aberrant behavior suggestive of drug diversion. The patient is not having any adverse reactions to medications. The patient is not suffering from daytime somnolence or mental acuity changes. The patient is managing opiate-induced constipation with appropriate mjhp-hdx-hntfskd agents and dietary considerations. The patient was counseled on concern for caution with operating a motor vehicle while using opiate medications. PLAN: 1. We discussed treatment options with the patient today. The patient is wondering about increasing his gabapentin dose. I encouraged the patient instead of increasing it to try and split his dose to twice a day, taking 600 during the day and 600 again at bedtime to see if this is beneficial in helping some of his numbness that he has been experiencing throughout the day. The patient verbalizes understanding. 2. We will refill his hydrocodone 7.5/325, #90, sending these to [facility] pharmacy by Dr. Avni Ordonez for 3 months. The patient is very worried about this electrical signing of medications. He is worried that the pharmacy will not have his medications and then he will be without his medicines. I explained to him that he needs to call them a day or two before he is out to request his refill that will be electronically on file there. This should help with inventory control at these pharmacies. He has been told before to use only one [facility] [address] [place] [address] PAIN MANAGEMENT CONSULTATION Name: PAUL CACERES [facility] [id number] Admission: 10/07/19 Attend Phys: Flores Donovan Discharge: Date of : 64 Report #: [id number] pharmacy and this should also help with having them filling at one pharmacy on a monthly basis done with our inventory. The patient verbalizes understanding. 3. The patient is seen in collaboration with Dr. Avni Ordonez. The patient will return in 3 months' time. <ELECTRONICALLY SIGNED> By: Flores Donovan 10/08/19 0822 [id number] Flores Donovan /shanelle
== END ==
LOC: PAIN 06:48
DX: M47.27 Other spondylosis with radiculopathy, lumbosacral region (principal); G89.4 Chronic pain syndrome; F11.20 Opioid dependence, uncomplicated

== ENCOUNTER → 2020-01-05 | Outpatient (CLI) | payer BC, OTHER ==
[~2020-01-05] VITALS: Ht 167.6 cm; Wt 81.4 kg
[2020-01-05 09:39] VITALS: BP 133/74
--- NOTE | 2020-01-05 09:47 | NUR ---
Pain Clinic Assessment: 1. History of Osteoarthritis: Right Upper Extremity Left Upper Extremity History of Rheumatoid Arthritis: Not Applicable 2. Height: 5 ft. 6 in. 167.6 cm. Weight: 179.4 lb. oz. 81.375 kg. Patient's BMI: 29.0 3. Vital Signs: BP: 133/74 Pulse: 70 Resp: 16 Temp: 02 Sat: 98 ECG Mon: 4. Pain Intensity: 8 5. Fall Risk: Dizziness: N Needs help standing or walking: N Fallen in the last 3 months: N Fall risk comments: 6. Patient on Blood Thinner: None 7. History of Hypertension: N 8. Opioid Therapy greater than 6 weeks: Y Opiate Contract Signed: 02/18/16 9. Risk Assessment Tool Provided: 0-LOW 10. Functional Assessment Tool: / 11. Recreational Drug Use: Never Drug Type: Tobacco Use: Former Smoker Tobacco Type: Cigarettes Amount or Packs/day: 1/2 How Many Years: 9 Alcohol Use: No Frequency: Quant:
--- NOTE | 2020-01-05 13:25 | HPC ---
[facility] [place] [address] PAIN MANAGEMENT CONSULTATION Name: PAUL CACERES Room #: REG Romero Dickey.#: [id number] Admission: 01/05/20 Attend Phys: Avni Ordonez DO Discharge: Date of : 64 Report #: [id number] THIS REPORT FOR: cc: Montse Pineda MD,Montse Ordonez,Avni Rogers DO ~ DATE OF SERVICE: 01/05/2020 REFERRING PHYSICIAN: Montse Pineda MD CHIEF COMPLAINT: Low back pain, left lower extremity pain with paresthesias. HISTORY OF PRESENT ILLNESS: As you know, the patient is a pleasant 59-year-old male who has returned today in followup visit requesting refill on medications. He states medications are working beneficially for pain control despite the fact that he is providing a pain level of 8/10 today. He states pain begins in low back, radiates down the left leg in a typical lumbar radicular fashion. We have discussed with the patient multiple times, other treatment options to address his ongoing pain including epidural injections for which the patient was actually referred to our clinic. We discussed a spinal cord stimulator therapy and ultimately surgical decompression to address symptoms. At this point, he wishes to remain on medication as he does report good efficacy, even though his pain level is reported at 8/10 today, which does not correlate with this statement. He returns to discuss ongoing medication management. He denies new injury or trauma that may have led to symptom continuation. He has been released from work since mid-November due to the COVID restrictions. He is yet to return to his normal work activities. He has been doing home projects such as painting his garage and doing other typical home projects without difficulty. ALLERGIES: NABUMETONE. CURRENT MEDICATIONS: Gabapentin 1200 mg p.o. at bedtime, hydrocodone 7.5/325 one tablet every 8 hours p.r.n. for pain, tolterodine 2 mg p.r.n., albuterol 2 puffs q.4 hours p.r.n., valacyclovir 1000 mg p.r.n. b.i.d., Elidel p.r.n., and omega-3 fish oil 1000 mg once a day. SOCIAL HISTORY: The patient denies tobacco, alcohol, IV or illicit drug use. He is a reformed smoker, quit about 9 years ago. He is unaccompanied at today's visit. He is currently furloughed from work due to the COVID restrictions. IMAGING: No imaging available. PHYSICAL EXAMINATION: VITAL SIGNS: Blood pressure 133/74, pulse 70, respiratory rate 16 and unlabored, the patient is 98% on room air. Height 5 feet 6 inches tall, [place] [address] PAIN MANAGEMENT CONSULTATION Name: MORRISPAUL DARLING [id number] Admission: 01/05/20 Attend Phys: Avni Ordonez DO Discharge: Date of : 64 Report #: [id number] 179.4 pounds, BMI calculated 29.0. GENERAL: Well-developed, well-nourished, well-hydrated 59-year-old male appearing stated age. He is in no acute distress, awake, alert and oriented x3. Current pain score is 8/10. HEENT: Normocephalic and atraumatic. Pupils are equal, round, and reactive. Speech fluent for patient. EXTREMITIES: Show no clubbing, no cyanosis, and no edema. MUSCULOSKELETAL: The patient displays no changes in gait today. His muscle bulk and tone is equal and symmetrical in comparing left lower extremity to right. Seated straight leg raising negative. Supine straight leg raising positive on the left. Socorro's test negative. Modified Gaenslen's positive for axial low back pain. ASSESSMENT: 1. Symptomatic lumbar radiculopathy. 2. Lumbosacral spondylosis with radiculopathy. 3. Displacement of lumbar intervertebral disk with radiculopathy. 4. Opioid dependency. 5. Complicated medication management utilizing controlled substances. 6. Chronic intractable pain. We reviewed the fact that opiate medications are being used to provide analgesia adequate to support activities of daily living, not attempting to achieve a specific pain score on the 0-10 Visual Analog Scale. The current opiate medications are providing sufficient analgesia to allow the patient to participate in activities of daily living. The patient is not exhibiting any aberrant behavior suggestive of drug diversion. The patient is not having any adverse reactions to medications. The patient is not suffering from daytime somnolence or mental acuity changes. The patient is managing opiate-induced constipation with appropriate hhbh-sti-ohnhpha agents and dietary considerations. The patient was counseled on concern for caution with operating a motor vehicle while using opiate medications. A physical exam was performed and the patient's functional status was evaluated. All patients with back pain were advised against the bed rest greater than 4 days and were advised to return to normal activities. Pain score assessment was noted and the treatment plan was reviewed with the patient. All current medications, both prescribed and OTC were reviewed and reconciled on the electronic medical record. Tobacco screening was accomplished and smoking cessation was advised when indicated. BMI was noted and diet/exercise modification was recommended for all patients following outside normal parameters. I reviewed with the patient today their responsibilities to safeguard prescription medications, reviewed their responsibility to utilize medications only as prescribed by the physician. They are to seek and receive pain [facility] [address] [place] [address] PAIN MANAGEMENT CONSULTATION Name: MORRISPAUL DARLING Room #: REG CL Lynne#: [id number] Admission: 01/05/20 Attend Phys: Avni Ordonez DO Discharge: Date of : 64 Report #: [id number] medications only from 1 physician group ([facility]). They are to use 1 pharmacy and keep the clinic informed if they change pharmacies. Their responsibilities include making followup visits in a timely fashion and to avoid abrupt discontinuation of medication usage. Their responsibilities further include bringing their medications (bottles from the pharmacy with residual pills) to the visit for possible confirmation of pill counts and the patient understands it is their responsibility to submit to random drug screens to ensure both that the medications prescribed are present, and that no other controlled substances are present. All prescriptions provided today were generated electronically. PLAN: 1. The patient returns today in followup visit where we had a very long discussion with the patient in regard to medications versus other treatment options including physical therapy, epidural injections, spinal cord stimulator therapy and surgical options. The patient at this point wishes to continue medication management despite the fact that he is providing a pain level of 8/10 today. We have discussed this with the patient at length. If he is truly experiencing 8/10 pain and his function would be significantly reduced, though the patient continues to do activities at home, such as painting his garage and other home activities, which would indicate to this physician that the symptoms of pain do not correlalate with the pain level. 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 I have discussed this with the patient again today. I believe that his pain is present, but to the level of 8/10 does not fit with his clinical presentation today. He does feel the medications are working beneficially and thus we will continue the therapy, understanding that this is not a long-term treatment option, but ultimately will have to make changes in treatment course as opioids are not a long-term treatment option for chronic pain. 2. The patient was provided a prescription of his hydrocodone 7.5/325 one tablet p.o. q.8 hours p.r.n. for pain. I have given the patient #90 tablets to release today, 4 weeks from today and 8 weeks from today, 3 months' worth of medication. Prescriptions were provided to the patient in written form today. He will safeguard these prescriptions as replacement prescriptions will not be offered. 3. The patient was provided refill prescription of gabapentin 600 mg dose for which he takes 2 tablets p.o. at bedtime, #60 with 2 refills, 3 months' worth of medication. 4. The patient has requested this physician to provide him with a handicap placard. The patient does not meet criteria for handicap placard. He can discuss this with his PCP if he wishes to do so. [address] [address] PAIN MANAGEMENT CONSULTATION Name: PAUL CACERES Room #: REG DARCY Batista#: [id number] Admission: 01/05/20 Attend Phys: Avni Ordonez DO Discharge: Date of : 64 Report #: [id number] 5. We will see the patient back in followup visit for medication management in 3 months. <ELECTRONICALLY SIGNED> By: Avni Ordonez DO 01/05/20 1325 1020 1140 Avni Ordonez DO /nt
== END ==
LOC: PAIN 07:06
DX: M47.27 Other spondylosis with radiculopathy, lumbosacral region (principal); R20.2 Paresthesia of skin; M79.605 Pain in left leg; F11.20 Opioid dependence, uncomplicated; G89.29 Other chronic pain; Z79.899 Other long term (current) drug therapy

== ENCOUNTER → 2020-04-05 | Outpatient (CLI) | payer OTHER ==
[~2020-04-05] VITALS: Ht 167.6 cm; Wt 78.9 kg
[~2020-04-05] MED LIST changes: +FISH OIL 1,0001 EAC9 PO; +VIBRAMYCIN 100100 MG PO
[2020-04-05 09:57] VITALS: BP 150/72
--- NOTE | 2020-04-05 10:00 | NUR ---
Pain Clinic Assessment: 1. History of Osteoarthritis: Right Upper Extremity Left Upper Extremity History of Rheumatoid Arthritis: DENIES 2. Height: 5 ft. 6 in. 167.6 cm. Weight: 174.0 lb. oz. 78.926 kg. Patient's BMI: 28.1 3. Vital Signs: BP: 150/72 Pulse: 56 Resp: 14 Temp: 02 Sat: 100 ECG Mon: 4. Pain Intensity: 9 5. Fall Risk: Dizziness: N Needs help standing or walking: N Fallen in the last 3 months: N Fall risk comments: 6. Patient on Blood Thinner: None 7. History of Hypertension: N 8. Opioid Therapy greater than 6 weeks: Y Opiate Contract Signed: 02/18/16 9. Risk Assessment Tool Provided: 0-LOW 10. Functional Assessment Tool: / 11. Recreational Drug Use: Never Drug Type: Tobacco Use: Former Smoker Tobacco Type: Amount or Packs/day: How Many Years: Alcohol Use: No Frequency: Quant:
--- NOTE | 2020-04-06 09:24 | HPC ---
[facility] [address] [place] [address] PAIN MANAGEMENT CONSULTATION Name: PAUL CACERES Room #: REG [facility] Noble.#: [id number] Admission: 04/05/20 Attend Phys: Flores Donovan Discharge: Date of : 64 Report #: [id number] THIS REPORT FOR: cc: Montse Pineda MD,Montse Donovan,Flores SANTAMARIA ~ CC: JANY ALMANZAR DO DATE OF SERVICE: 04/05/2020 CHIEF COMPLAINT: Low back pain, left lower extremity pain and paresthesias. HISTORY OF PRESENT ILLNESS: This is a 59-year-old gentleman who returns to the pain clinic today for a followup for his refill of medications that he uses to help treat his ongoing lower back and left buttock and hip pain. He reports a pain score of 9/10 today, states that it has increased since his last visit due to being more active. 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 He states this has increased his pain. He was requesting an increase in his opioid medications today, states that it is a sharp, cramping feeling that is worse with walking and activity. He feels that he takes a break and rest as well as medications and his pain is better. He denies any problems with constipation or daytime somnolence as a result of his medications. ALLERGIES: NABUMETONE. CURRENT LIST OF MEDICATIONS: Fish oil, hydrocodone 7.5/325 three times a day, gabapentin 1200 mg at bedtime, albuterol inhaler and valacyclovir. PQRS: 1. He has osteoarthritis of his upper extremities. He denies any rheumatoid arthritis. 2. Height is 5 feet 6 inches, weight is 174, BMI is 28. Vital signs, 150/72, pulse is 56, respirations 14, oxygen sat is 100. 3. Pain score is 9/10. 4. Denies dizziness, does not need help walking or standing, has not fallen in the last 3 months. 5. The patient is not on any blood thinners or medicine for hypertension. 6. Opioid therapy is greater than 6 weeks; therefore, an opioid signed contract is on the chart. Risk assessment tool is low. Functional assessment 64/70. 7. Recreational drug use, he denies. He is a former smoker and does not drink alcohol. According to the prescription monitoring system, the patient is filling appropriately, though he is using multiple pharmacies, [place] [address] PAIN MANAGEMENT CONSULTATION Name: MORRISPAUL PHONG Room #: REG DARCY Batista#: [id number] Admission: 04/05/20 Attend Phys: Flores Donovan Discharge: Date of : 64 Report #: [id number] and he is to pick one pharmacy and fill only at that pharmacy. We will electronically send his prescriptions to the one that he has chosen, which is a [facility] on [facility]. His morphine mEq according to the CDC guidelines is 22. PHYSICAL EXAMINATION: GENERAL: This is a well-developed, well-nourished, well-hydrated 59-year-old gentleman who appears his stated age, placing his current pain score 9/10. He is alert and orientated today. HEENT: Normocephalic, atraumatic. Pupils equal, round and reactive to light. He is wearing a mask. EXTREMITIES: No clubbing, no cyanosis, no edema. MUSCULOSKELETAL: He has pain in his lower left back that radiates into his left hip and lower extremity. Seated straight leg raising is negative. Modified Gaenslen is positive for axial low back pain. He has a normal gait. ASSESSMENT: 1. Symptomatic lumbar radiculopathy. 2. Lumbosacral spondylosis with radiculopathy. 3. Displacement of lumbar intervertebral disk with radiculopathy. 4. Opioid dependency. 5. Complicated medical management utilizing scheduled medication under written agreement. We reviewed the fact that opiate medications are being used to provide analgesia adequate to support activities of daily living, not attempting to achieve a specific pain score on the 0-10 Visual Analog Scale. The current opiate medications are providing sufficient analgesia to allow the patient to participate in activities of daily living. The patient is not exhibiting any aberrant behavior suggestive of drug diversion. The patient is not having any adverse reactions to medications. The patient is not suffering from daytime somnolence or mental acuity changes. The patient is managing opiate-induced constipation with appropriate ctey-ebe-rdhywwn agents and dietary considerations. The patient was counseled on concern for caution with operating a motor vehicle while using opiate medications. A physical exam was performed and the patient's functional status was evaluated. All patients with back pain were advised against the bed rest greater than 4 days and were advised to return to normal activities. Pain score assessment was noted and the treatment plan was reviewed with the patient. All current medications, both prescribed and OTC were reviewed and reconciled on the electronic medical record. Tobacco screening was accomplished and smoking cessation was advised when indicated. BMI was noted and diet/exercise modification was recommended for all patients following outside normal parameters. [address] [address] PAIN MANAGEMENT CONSULTATION Name: PAUL CACERES Room #: REG CL Noble#: [id number] Admission: 04/05/20 Attend Phys: Flores Donovan Discharge: Date of : 64 Report #: [id number] I reviewed with the patient today their responsibilities to safeguard prescription medications, reviewed their responsibility to utilize medications only as prescribed by the physician. They are to seek and receive pain medications only from [facility] physician group ( [facility]). They are to use 1 pharmacy and keep the clinic informed if they change pharmacies. Their responsibilities include making followup visits in a timely fashion and to avoid abrupt discontinuation of medication usage. Their responsibilities further include bringing their medications (bottles from the pharmacy with residual pills) to the visit for possible confirmation of pill counts and the patient understands it is their responsibility to submit to random drug screens to ensure both that the medications prescribed are present, and that no other controlled substances are present. All prescriptions provided today were generated electronically. PLAN: 1. We discussed treatment options with the patient today. I explained to the patient that we are not able to increase his opioid medications. It seems that it may be more inflammatory responses from being more active. I encouraged the patient to use heat, ice and anti-inflammatories when his pain is increased when he is more active. The patient verbalizes understanding. 2. Dr. Jany Almanzar will refill his hydrocodone 7.5/325, #90. He will send these electronically to his pharmacy for 3 months. I explained to the patient, he must use one pharmacy only for his opioid medications. The patient has chosen the [facility] pharmacy. 3. I will send electronically his gabapentin. He takes 1200 mg at bedtime and finds this beneficial for helping the neuropathic pain in his left leg. 4. The patient will return in 3 months. Hopefully at that time, he will have been able to return to work since the COVID outbreak has caused him to cease his normal employment. <ELECTRONICALLY SIGNED> By: Flores Donovan 04/06/20 0924 1028 1347 Flores Donovan /nt
== END ==
LOC: PAIN 06:54
PROVIDERS: ATTEND Clinical Nurse Specialist Adult Health
DX: M47.27 Other spondylosis with radiculopathy, lumbosacral region (principal); M54.5 Low back pain; M79.605 Pain in left leg; R20.2 Paresthesia of skin; M51.16 Intervertebral disc disorders with radiculopathy, lumbar region; F11.20 Opioid dependence, uncomplicated; Z88.8 Allergy status to other drugs, medicaments and biological substances

== ENCOUNTER → 2020-07-05 | Outpatient (CLI) | payer OTHER ==
[~2020-07-05] VITALS: Ht 167.6 cm; Wt 78.0 kg
[2020-07-05 09:33] VITALS: BP 142/66
--- NOTE | 2020-07-05 09:38 | NUR ---
Pain Clinic Assessment: 1. History of Osteoarthritis: Right Upper Extremity Left Upper Extremity History of Rheumatoid Arthritis: DENIES 2. Height: 5 ft. 6 in. 167.6 cm. Weight: 172.0 lb. oz. 78.019 kg. Patient's BMI: 27.8 3. Vital Signs: BP: 142/66 Pulse: 57 Resp: 14 Temp: 02 Sat: 100 ECG Mon: 4. Pain Intensity: 9 5. Fall Risk: Dizziness: N Needs help standing or walking: N Fallen in the last 3 months: N Fall risk comments: 6. Patient on Blood Thinner: None 7. History of Hypertension: N 8. Opioid Therapy greater than 6 weeks: Y Opiate Contract Signed: 02/18/16 9. Risk Assessment Tool Provided: 0-LOW 10. Functional Assessment Tool: / 11. Recreational Drug Use: Never Drug Type: Tobacco Use: Former Smoker Tobacco Type: Amount or Packs/day: How Many Years: Alcohol Use: No Frequency: Quant:
--- NOTE | 2020-07-06 07:57 | HPC ---
[facility] [address] [place] [address] PAIN MANAGEMENT CONSULTATION Name: PAUL CACERES [facility] #[id number] Admission: 07/05/20 Attend Phys: Flores Donovan Discharge: Date of : 64 Report #: [id number] CC: Flores Adanlenin Scottson DATE OF SERVICE: 07/05/2020 CHIEF COMPLAINT: Bilateral hip pain, low back pain. HISTORY OF PRESENT ILLNESS: This is a 59-year-old gentleman, who returns to the pain clinic today for refill of his medications that he uses to help treat his ongoing low back pain that does radiate into his bilateral hips and left lower extremity. He reports today a pain score of 9/10, which is quite high for him and it is a sharp pain, cramping sensation. 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 He believes this is causing some of his increase in pain. He does walk quite a bit more and bend over and that has been increasing his pain. He denies problems with constipation or daytime somnolence. He feels that sitting has beneficial, but unfortunately he is not able to do that as often as he would like. Today, he would like refills of his hydrocodone and gabapentin. ALLERGIES: NABUMETONE. CURRENT LIST OF MEDICATIONS: Hydrocodone 7.5/325 p.r.n., gabapentin 600 mg 2 tablets at bedtime, fish oil, tolterodine tartrate 2 mg b.i.d., albuterol inhaler, valacyclovir. PQRS: 1. He has history of osteoarthritis in his upper extremities. Denies any rheumatoid arthritis. 2. Height is 5 feet 6 inches, weight is 172, BMI is 27. Vital signs 142/66, pulse is 57, respirations 14, oxygen sat is 100, pain score is 9/10. 3. Fall risk. Denies dizziness, does not need help walking or standing, has not fallen in the last 3 months. The patient is not on any blood thinners or medicine for hypertension. Opioid therapy is greater than 6 weeks; therefore, an opioid signed contract is on the chart. Risk assessment is low. Functional assessment 64/70. 4. Recreational drug use, he denies. He is a former smoker and does not drink alcohol. According to the prescription monitoring system, the patient is filling appropriately for his medications, filling them in a timely fashion. His morphine mEq is 22 MME. PHYSICAL EXAMINATION: GENERAL: This is alert and orientated, pleasant, well-developed, well-nourished 59-year-old gentleman, who appears his stated age, placing his current pain score at 9/10. HEENT: Normocephalic, atraumatic. Pupils equal, round and reactive to light. He is wearing a mask today. EXTREMITIES: No clubbing, no cyanosis, no edema. MUSCULOSKELETAL: He has tenderness in his lumbosacral region that does radiate into his bilateral hips and down his right leg with burning and tingling noted. Seated straight leg raising is negative. Modified Gaenslen is positive for axial low back pain. He walks with a normal gait. ASSESSMENT: 1. Symptomatic lumbar radiculopathy. 2. Lumbosacral spondylosis with radiculopathy. 3. Placement of the lumbar intervertebral disk with radiculopathy. 4. Opioid dependency. 5. Complicated medical management utilizing scheduled medications under written agreement. We reviewed the fact that opiate medications are being used to provide analgesia adequate to support activities of daily living, not attempting to achieve a specific pain score on the 0-10 Visual Analog Scale. The current opiate medications are providing sufficient analgesia to allow the patient to participate in activities of daily living. The patient is not exhibiting any aberrant behavior suggestive of drug diversion. The patient is not having any adverse reactions to medications. The patient is not suffering from daytime somnolence or mental acuity changes. The patient is managing opiate-induced constipation with appropriate olqn-wsu-zksurlt agents and dietary considerations. The patient was counseled on concern for caution with operating a motor vehicle while using opiate medications. PLAN: 1. We discussed treatment options with the patient today. The patient finds that he is having more pain throughout the day. We did discuss moving one of his gabapentin pills from the nighttime dose to during the day or later in the morning or in the afternoon hours to see if this is beneficial in helping with some of his increasing pain throughout the day. The patient verbalizes understanding. 2. We did discuss the cost of his medications since he currently has no insurance. He has paid castro using the [employer] script. I have taken the liberty of writing a 3-month supply of his gabapentin 600 mg in #180, to be filled at a [facility], which appears to have the best prices for his gabapentin. 3. The patient will continue his hydrocodone taking 3 tablets maximum a day of 7.5/325. These will be sent electronically to his [facility]'s pharmacy by Dr. vAni Ordonez. 4. The patient will return in 3 months or as needed for an appointment. <ELECTRONICALLY SIGNED> By: Flores Donovan 07/06/20 0757 1121 1154 Flores Donovan /nt
== END ==
LOC: PAIN 06:48
PROVIDERS: ATTEND Clinical Nurse Specialist Adult Health
DX: M47.27 Other spondylosis with radiculopathy, lumbosacral region (principal); M51.16 Intervertebral disc disorders with radiculopathy, lumbar region; F11.20 Opioid dependence, uncomplicated; M25.551 Pain in right hip; M25.552 Pain in left hip; Z79.899 Other long term (current) drug therapy; Z88.8 Allergy status to other drugs, medicaments and biological substances

== ENCOUNTER → 2020-10-04 | Outpatient (CLI) | payer OTHER ==
[~2020-10-04] VITALS: Ht 167.6 cm; Wt 82.8 kg
[2020-10-04 09:16] VITALS: BP 123/69
--- NOTE | 2020-10-04 09:31 | NUR ---
Pain Clinic Assessment: 1. History of Osteoarthritis: Right Upper Extremity Left Upper Extremity History of Rheumatoid Arthritis: DENIES 2. Height: 5 ft. 6 in. 167.6 cm. Weight: 182.6 lb. oz. 82.827 kg. Patient's BMI: 29.5 3. Vital Signs: BP: 123/69 Pulse: 71 Resp: 16 Temp: 02 Sat: 100 ECG Mon: 4. Pain Intensity: 8 5. Fall Risk: Dizziness: N Needs help standing or walking: N Fallen in the last 3 months: N Fall risk comments: 6. Patient on Blood Thinner: None 7. History of Hypertension: N 8. Opioid Therapy greater than 6 weeks: Y Opiate Contract Signed: 02/18/16 9. Risk Assessment Tool Provided: 0-LOW 10. Functional Assessment Tool: / 11. Recreational Drug Use: Never Drug Type: Tobacco Use: Former Smoker Tobacco Type: Amount or Packs/day: How Many Years: Alcohol Use: No Frequency: Quant:
--- NOTE | 2020-10-05 12:09 | HPC ---
[facility] [place] [address] [address] PAIN MANAGEMENT CONSULTATION Name: PAUL CACERES Room #: REG Romero Maryuri.#: [id number] Admission: 10/04/20 Attend Phys: Avni Ordonez DO Discharge: Date of : 64 Report #: [id number] THIS REPORT FOR: cc: Montse Pineda MD,Montse Ordonez,Avni Rogers DO ~ DATE OF SERVICE: 10/04/2020 CHIEF COMPLAINT: Bilateral hip pain and low back pain. HISTORY OF PRESENT ILLNESS: As you know, the patient is a very pleasant 59-year-old male returning in followup visit for continuation of medication therapy. He is placing his current pain score at 8/10. He states that despite his elevated pain level today, the pain medications we are providing gave 70% improvement in overall symptoms. He is denying side effects of sleepiness, disorientation, confusion, mental slowing or constipation with their use. Overall, the patient states he is doing well. He states his pain is mainly exacerbated with walking at this point, improves with medications and seated position. 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 He returns today to receive refill of medications to continue analgesic benefit. ALLERGIES: NABUMETONE. CURRENT MEDICATIONS: Hydrocodone/acetaminophen 7.5/325 mg 1 tablet p.o. q.8 hours p.r.n. pain, gabapentin 600 mg 2 tabs b.i.d., omega-3 fish oil 1 tab per day, albuterol 2 puffs q.4 hours p.r.n., valacyclovir 1000 mg p.r.n., Elavil cream applied topically twice a day. SOCIAL HISTORY: The patient denies tobacco, alcohol, IV or illicit drug use. He is currently on furlough from his typical job, unaccompanied at today's visit. IMAGING: No new imaging available. PHYSICAL EXAMINATION: VITAL SIGNS: Blood pressure 123/69, pulse is 71, respiratory rate 16 and unlabored. The patient is 100% on room air. Height 5 feet 6 inches tall, weight 182.6 pounds, BMI calculated 29.5. GENERAL: Well-developed, well-nourished, well-hydrated 59-year-old male appearing his stated age, placing current pain score at 8/10. HEENT: Normocephalic, atraumatic. Pupils equal, round and reactive. NEUROLOGIC: Speech fluent. The patient is wearing a mask in compliance with COVID-19 regulations. EXTREMITIES: Show no clubbing, no cyanosis. No appreciable edema. MUSCULOSKELETAL: The patient once again has palpatory tenderness over the [address] [address] PAIN MANAGEMENT CONSULTATION Name: PAUL CACERES Room #: REG CLI [facility]#: [id number] Admission: 10/04/20 Attend Phys: Avni Ordonez DO Discharge: Date of : 64 Report #: [id number] paraspinal musculature of lower lumbar spine. No spinous process tenderness. Seated straight leg raising negative. Supine straight leg raising negative. Socorro's test is negative. Modified Gaenslen's positive for axial low back pain. Ankle clonus negative. Babinski is negative. Deep tendon reflexes equal and symmetrical. ASSESSMENT: 1. Symptomatic lumbar radiculopathy. 2. Lumbosacral spondylosis with radiculopathy. 3. Displacement of lumbar intervertebral disk with radiculopathy. 4. Opioid dependency. 5. Chronic intractable pain. PLAN: 1. The patient returns today in followup visit requesting refill of medications. We have reviewed the patient's PDMP and there shows no concerning entries in the [place] and [place] reports. We have also reviewed the patient's opioid contract with him once again today as it was time for renewal. The patient understands his obligation to the contract itself. He reports he is having no side effects to medication, does feel they are quite beneficial, reporting up to 70% improvement in overall pain. He wishes to continue the medication management as directed. 2. The patient was provided refill prescription of hydrocodone/acetaminophen 7.5/325 mg dose 1 tab p.o. t.i.d. p.r.n. pain. I have given the patient #90 tablets to release today, 4 weeks from today, 8 weeks from today, 3 months' worth of medication. We did discuss with the patient that his MME is 22.5, well below the CDCs recommended no greater than 90 morphine equivalents a day. 3. We will see the patient back in followup visit in 3 months for medication management. <ELECTRONICALLY SIGNED> By: Avni Ordonez DO 10/05/20 1209 [id number] Avni Ordonez DO /nt
== END ==
LOC: PAIN 06:52
PROVIDERS: ATTEND Anesthesiology Pain Medicine
DX: G89.29 Other chronic pain (principal); M47.27 Other spondylosis with radiculopathy, lumbosacral region; M51.16 Intervertebral disc disorders with radiculopathy, lumbar region; Z68.29 Body mass index [BMI] 29.0-29.9, adult; Z88.8 Allergy status to other drugs, medicaments and biological substances; Z79.891 Long term (current) use of opiate analgesic; Z79.899 Other long term (current) drug therapy

== ENCOUNTER → 2021-01-03 | Outpatient (CLI) | payer OTHER ==
[~2021-01-03] VITALS: Ht 167.6 cm; Wt 85.1 kg
[2021-01-03 08:32] VITALS: BP 134/80
--- NOTE | 2021-01-03 08:38 | NUR ---
Pain Clinic Assessment: 1. History of Osteoarthritis: Right Upper Extremity Left Upper Extremity History of Rheumatoid Arthritis: DENIES 2. Height: 5 ft. 6 in. 167.6 cm. Weight: 187.6 lb. oz. 85.095 kg. Patient's BMI: 30.3 3. Vital Signs: BP: 134/80 Pulse: 62 Resp: 14 Temp: 02 Sat: 98 ECG Mon: 4. Pain Intensity: 7 5. Fall Risk: Dizziness: N Needs help standing or walking: N Fallen in the last 3 months: N Fall risk comments: 6. Patient on Blood Thinner: None 7. History of Hypertension: N 8. Opioid Therapy greater than 6 weeks: Y Opiate Contract Signed: 02/18/16 9. Risk Assessment Tool Provided: 0-LOW 10. Functional Assessment Tool: 11. Recreational Drug Use: Never Drug Type: Tobacco Use: Former Smoker Tobacco Type: Amount or Packs/day: How Many Years: Alcohol Use: No Frequency: Quant:
--- NOTE | 2021-01-04 08:16 | HPC ---
[facility] [address] [address] PAIN MANAGEMENT CONSULTATION Name: PAUL CACERES Room #: REG [facility] Lynne#: [id number] Admission: 01/03/21 Attend Phys: Flores Donovan Discharge: Date of : 64 Report #: [id number] THIS REPORT FOR: cc: Montse Pineda MD,Montse Donovan,Flores SANTAMARIA ~ DATE OF SERVICE: 01/03/2021 CHIEF COMPLAINT: Bilateral hip pain and low back pain. HISTORY OF PRESENT ILLNESS: This is a pleasant 60-year-old gentleman who returns to the pain clinic today for renewal of his medications. He continues to have ongoing pain, mostly centered in his left hip and buttock that does radiate into his leg. Occasionally, he reports recently pain in his right hip as well. Today, his pain score is 7/10. He describes it as an aching, sharp pain that is worse with walking and being active. 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 Overall, he believes the medication as well as resting are beneficial in helping relieve his pain. He denies any side effects of sleepiness or confusion, though today, he is reporting some constipation issues. He does have a history of diverticulitis that required surgery in the past, so he is very cautious regarding his foods and becoming too constipated. He is wondering about medications he may try to help prevent any problems. ALLERGIES: NABUMETONE. CURRENT LIST OF MEDICATIONS: Gabapentin, hydrocodone 7.5/325 p.r.n., fish oil, tolterodine tartrate, albuterol inhaler, valacyclovir. PATIENT'S PQRS: 1. He has upper and lower extremity osteoarthritis. Denies any rheumatoid arthritis. 2. Height is 5 feet 6 inches, weight is 187, BMI is 30. 3. Vital signs: 134/80, pulse is 62, respirations 14, oxygen sat is 98%. 4. Pain score is 7/10. 5. Denies dizziness, does not need help walking or standing, has not fallen in the last 3 months. 6. The patient is not on blood thinners and does not take medicine for hypertension. Opioid therapy is greater than 6 weeks; therefore, an opioid signed contract is on the chart. Risk assessment is low. Functional assessment 64/70. 7. Recreational drug use, he denies. He is a former smoker and does not drink alcohol. According to the prescription monitoring system, he is due to fill his [address] [address] PAIN MANAGEMENT CONSULTATION Name: PAUL CACERES Room #: REG DARCY Batista#: [id number] Admission: 01/03/21 Attend Phys: Flores Donovan Discharge: Date of : 64 Report #: [id number] medications today, filling them in a timely fashion. His morphine milliequivalent is 22 MME's. There is a drug screen on the chart. We will attempt to repeat that at the next visit. PHYSICAL EXAMINATION: GENERAL: This is a well-developed, well-nourished, well-hydrated 60-year-old gentleman who appears his stated age, rating his pain score today at 7/10. HEENT: Normocephalic, atraumatic. Pupils equal, round and reactive to light. He is wearing a mask. His speech is fluent. EXTREMITIES: No clubbing, no cyanosis, no edema. MUSCULOSKELETAL: He has tenderness over the paraspinal musculature of the lumbar spine. Straight leg raising is negative. Modified Gaenslen's is positive for axial low back pain. Pain radiates into his hips and legs bilaterally, greater on the left than the right. We reviewed the fact that opiate medications are being used to provide analgesia adequate to support activities of daily living, not attempting to achieve a specific pain score on the 0-10 Visual Analog Scale. The current opiate medications are providing sufficient analgesia to allow the patient to participate in activities of daily living. The patient is not exhibiting any aberrant behavior suggestive of drug diversion. The patient is not having any adverse reactions to medications. The patient is not suffering from daytime somnolence or mental acuity changes. The patient is managing opiate-induced constipation with appropriate pdot-aal-qvawcbv agents and dietary considerations. The patient was counseled on concern for caution with operating a motor vehicle while using opiate medications. ASSESSMENT: 1. Symptomatic lumbar radiculopathy. 2. Lumbosacral spondylosis with radiculopathy. 3. Displacement of lumbar intervertebral disk with radiculopathy. 4. Opioid dependency. 5. Chronic intractable pain. 6. Complex medical management utilizing scheduled opioid medications. PLAN: 1. The patient returns today for followup for refills of his medication. We will continue him on his current dose of hydrocodone 7.5/325, #90. These will be sent electronically by Dr. Avni Ordonez for today, 4-week and 8-week release. 2. I will continue him on his gabapentin 600 mg tablets, 2 tablets twice a day, quantity 180, which is a 2-month supply with a refill. This will be given to the patient to fill using the [employer] card at his pharmacy of choice. 3. We did discuss his ongoing constipation issues since he is very cautious of what he eats, lots of roughage but still has some occasional constipation. We discussed jbnv-fvf-uulyyjs Senokot taking this at bedtime. If that is not [facility] [address] [place] [address] PAIN MANAGEMENT CONSULTATION Name: MORRISPAUL DARLING Room #: REG [facility].#: [id number] Admission: 01/03/21 Attend Phys: Flores Donovan Discharge: Date of : 64 Report #: [id number] beneficial, then to try MiraLax, which is also an ycyx-zua-virjyej medication. 4. We will obtain a urine drug screen on him at his next visit. Time spent with the patient in consultation, reviewing recent studies and clinical notes, physician reports, physical examination in correlation of findings and medical documentation to determine treatment 15 minutes. Time spent in preparation for appointment, reviewing prescription monitoring system, reviewing previous records and treatment options, reviewing current medications 5 minutes. Time spent in preparing and sending electronic prescriptions with collaborating physician, Dr. Avni Ordonez, documentation of visit and plan of treatment 7 minutes. Total time spent 27 minutes. <ELECTRONICALLY SIGNED> By: Flores Donovan 01/04/21 0816 1025 194 Flores Donovan /nt
== END ==
LOC: PAIN 06:50
PROVIDERS: ATTEND Clinical Nurse Specialist Adult Health
DX: M47.27 Other spondylosis with radiculopathy, lumbosacral region (principal); M51.16 Intervertebral disc disorders with radiculopathy, lumbar region; M25.551 Pain in right hip; M25.552 Pain in left hip; F11.20 Opioid dependence, uncomplicated; G89.29 Other chronic pain

== ENCOUNTER → 2021-04-05 | Outpatient (CLI) | payer OTHER ==
[~2021-04-05] VITALS: Ht 167.6 cm; Wt 79.6 kg
[2021-04-05 08:16] VITALS: BP 125/54
--- NOTE | 2021-04-05 08:22 | NUR ---
Pain Clinic Assessment: 1. History of Osteoarthritis: Right Upper Extremity Left Upper Extremity History of Rheumatoid Arthritis: DENIES 2. Height: 5 ft. 6 in. 167.6 cm. Weight: 175.4 lb. oz. 79.561 kg. Patient's BMI: 28.3 3. Vital Signs: BP: 125/54 Pulse: 52 Resp: 14 Temp: 02 Sat: 100 ECG Mon: 4. Pain Intensity: 7 5. Fall Risk: Dizziness: N Needs help standing or walking: N Fallen in the last 3 months: N Fall risk comments: 6. Patient on Blood Thinner: None 7. History of Hypertension: N 8. Opioid Therapy greater than 6 weeks: Y Opiate Contract Signed: 02/18/16 9. Risk Assessment Tool Provided: 0-LOW 10. Functional Assessment Tool: / 11. Recreational Drug Use: Never Drug Type: Tobacco Use: Former Smoker Tobacco Type: Amount or Packs/day: How Many Years: Alcohol Use: No Frequency: Quant:
--- NOTE | 2021-04-07 12:10 | HPC ---
[facility] [place] [place] [address] PAIN MANAGEMENT CONSULTATION Name: PAUL CACERES Room #: REG DARCY Dickey.#: [id number] Admission: 04/05/21 Attend Phys: Avni Ordonez DO Discharge: Date of : 64 Report #: [id number] THIS REPORT FOR: cc: Montse Pineda MD,Avni Ramesh MD, DO ~ cc: Montse Pineda MD DATE OF SERVICE: 04/05/2021 CHIEF COMPLAINT: Low back pain, bilateral hip pain. HISTORY OF PRESENT ILLNESS: As you know, the patient is a pleasant 60-year-old male, returning in followup visit for continuation of medication management to address axial back pain and bilateral buttock pain. The patient is currently in the process of locating work. Since - restrictions, his typical job has been fairly reduced in its level of available activity. 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 This has exacerbated his symptoms. He is now placing pain score 7/10. He is denying side effects to the medication. Feels they are effective. He and I had discussed in the past possibly undergoing epidural injections, but due to current financial restraints, he cannot undergo an injection as he would have to pay castro. He requests refill on medications. He is again denying side effects to medication. He has had no specific injury or trauma that may have led to symptom reoccurrence and continuation. ALLERGIES: NABUMETONE. CURRENT MEDICATIONS: Gabapentin, hydrocodone, omega-3 fish oil, albuterol, valacyclovir, tolterodine. SOCIAL HISTORY: The patient reports himself a nonsmoker. Denies IV illicit drug use. Denies any chronic alcohol use. He is working odd jobs currently. He is unaccompanied at today's visit. IMAGING: No new imaging available. PHYSICAL EXAMINATION: VITAL SIGNS: Blood pressure 125/54, pulse 52, respiratory rate 14 and unlabored. The patient is 100% on room air. Height 5 feet 6 inches tall, weight 175.4 pounds, BMI calculated 28.3. GENERAL: Well-developed, well-nourished, well-hydrated 60-year-old male appearing his stated age, pain is rated around 7/10. HEENT: Normocephalic, atraumatic. Pupils equal, round and responsive. Speech is fluent. The patient is deemed a good historian. He is wearing a mask in compliance with COVID-19 regulations. EXTREMITIES: Show no clubbing, no cyanosis, no edema. [address] [address] PAIN MANAGEMENT CONSULTATION Name: PAUL CACERES Room #: REG CL [facility].#: [id number] Admission: 04/05/21 Attend Phys: Avni Ordonez DO Discharge: Date of : 64 Report #: [id number] MUSCULOSKELETAL: Tenderness to palpation is noted over the paraspinal musculature of lower lumbar spine. Lumbar provocation testing is met with slight increase in pain. Seated straight leg raising negative. Supine straight leg raising negative. Fabere's test is negative. Modified Gaenslen's positive for axial low back pain. No spinous process tenderness. Muscle bulk and tone is equal and symmetrical in lower extremities. ASSESSMENT: 1. Symptomatic lumbar radiculopathy. 2. Lumbosacral spondylosis with radiculopathy. 3. Displacement of lumbar intervertebral disk with radiculopathy. 4. Complicated medication management utilizing scheduled medications. 5. Opioid dependency. 6. Chronic intractable pain. PLAN: 1. The patient returns today in followup visit requesting refill on medications. He feels medications are working beneficially for pain control. He states that without the medication, he cannot go about his daily activities of work and home activities. He feels that with this medication, he is functioning more effectively. He requests refill of medications today. He is denying side effects of sleepiness, disorientation, confusion, mental slowing or constipation with these therapies. 2. The patient will submit a urine drug screen as part of our monitoring process. The patient indicates we will find no aberrancy within the urine drug screen itself. We will have the results back in 1 week. The patient can call in for those results if he wishes. 3. We reviewed the fact that opiate medications are being used to provide analgesia adequate to support activities of daily living, not attempting to achieve a specific pain score on the 0-10 Visual Analog Scale. The current opiate medications are providing sufficient analgesia to allow the patient to participate in activities of daily living. The patient is not exhibiting any aberrant behavior suggestive of drug diversion. The patient is not having any adverse reactions to medications. The patient is not suffering from daytime somnolence or mental acuity changes. The patient is managing opiate-induced constipation with appropriate masw-ozd-lsdzynz agents and dietary considerations. The patient was counseled on concern for caution with operating a motor vehicle while using opiate medications. A physical exam was performed and the patient's functional status was evaluated. All patients with back pain were advised against the bed rest greater than 4 days and were advised to return to normal activities. Pain score assessment was noted and the treatment plan was reviewed with the patient. All current medications, both prescribed and OTC were reviewed and reconciled on the electronic medical record. Tobacco screening was accomplished and smoking cessation was advised when indicated. BMI was noted and diet/exercise [facility] [address] [place] [address] PAIN MANAGEMENT CONSULTATION Name: MORRISPAUL DARLING [facility]: [facility] [place] [facility] [id number] Admission: 04/05/21 Attend Phys: Avni Ordonez DO Discharge: Date of : 64 Report #: [id number] modification was recommended for all patients following outside normal parameters. I reviewed with the patient today their responsibilities to safeguard prescription medications, reviewed their responsibility to utilize medications only as prescribed by the physician. They are to seek and receive pain medications only from 1 physician group ( [facility]). They are to use 1 pharmacy and keep the clinic informed if they change pharmacies. Their responsibilities include making followup visits in a timely fashion and to avoid abrupt discontinuation of medication usage. Their responsibilities further include bringing their medications (bottles from the pharmacy with residual pills) to the visit for possible confirmation of pill counts and the patient understands it is their responsibility to submit to random drug screens to ensure both that the medications prescribed are present, and that no other controlled substances are present. All prescriptions provided today were generated electronically. 4. The patient was provided prescription of hydrocodone/acetaminophen 7.5/325 one tab every 8 hours p.r.n. for pain. I have given the patient #90 tablets to release today, 4 weeks from today, 8 weeks from today, 3 months' worth of medication. 5. The patient was provided prescription of gabapentin 600 mg tabs. He is to take two tabs p.o. b.i.d., #180 tablets with 2 refills, 3 months' worth of medication. 6. I will see the patient back in followup visit in 3 months for medication management, earlier if interventional treatments are necessary. We are hopeful the patient will continue to see good improvement with the analgesic medications provided. We will see him back in 3 months. <ELECTRONICALLY SIGNED> By: Avni Ordonez DO 04/07/21 1210 0748 [id number] Avni Ordonez DO /nt
== END ==
LOC: PAIN 07:14
PROVIDERS: ATTEND Anesthesiology Pain Medicine
DX: M47.27 Other spondylosis with radiculopathy, lumbosacral region (principal); M51.17 Intervertebral disc disorders with radiculopathy, lumbosacral region; G89.4 Chronic pain syndrome; Z79.891 Long term (current) use of opiate analgesic; Z79.899 Other long term (current) drug therapy

== ENCOUNTER → 2021-07-05 | Outpatient (CLI) | payer OTHER ==
[~2021-07-05] VITALS: Ht 167.6 cm; Wt 78.0 kg
[2021-07-05 08:32] VITALS: BP 156/87
--- NOTE | 2021-07-05 08:37 | NUR ---
Pain Clinic Assessment: 1. History of Osteoarthritis: Right Upper Extremity Left Upper Extremity History of Rheumatoid Arthritis: DENIES 2. Height: 5 ft. 6 in. 167.6 cm. Weight: 172.0 lb. oz. 78.019 kg. Patient's BMI: 27.8 3. Vital Signs: BP: 156/87 Pulse: 60 Resp: 16 Temp: 02 Sat: 97 ECG Mon: 4. Pain Intensity: 8 5. Fall Risk: Dizziness: N Needs help standing or walking: N Fallen in the last 3 months: N Fall risk comments: 6. Patient on Blood Thinner: None 7. History of Hypertension: N 8. Opioid Therapy greater than 6 weeks: Y Opiate Contract Signed: 02/18/16 9. Risk Assessment Tool Provided: 0-LOW 10. Functional Assessment Tool: 64/ 11. Recreational Drug Use: Never Drug Type: Tobacco Use: Former Smoker Tobacco Type: Amount or Packs/day: How Many Years: Alcohol Use: No Frequency: Quant:
--- NOTE | 2021-07-11 08:35 | HPC ---
[facility] [address] [address] PAIN MANAGEMENT CONSULTATION Name: PAUL CACERES Room #: REG Romero Dickey.#: [id number] Admission: 07/05/21 Attend Phys: Avni Ordonez DO Discharge: Date of : 64 Report #: [id number] THIS REPORT FOR: cc: Montse Pineda MD,Avni Ramesh MD, DO ~ cc: Montse Pineda MD DATE OF SERVICE: 07/05/2021 CHIEF COMPLAINT: Low back pain, bilateral hip and buttock pain. HISTORY OF PRESENT ILLNESS: As you know, the patient is a 60-year-old male with longstanding history of ongoing lumbar radiculopathy secondary to the displacement of a lumbar intervertebral disk. He has been managed on medications, which the patient finds beneficial for pain control. He denies side effects of sleepiness, disorientation, confusion and mental slowing with the therapy. He reports a pain level at a very high level of 8/10 today, which is unusual for the patient. Apparently, he has been returning to work and the work levels have been excessively high as he has been brought back with minimal staff and he is having to do multiple persons' activities. Overall, the patient states he is doing really well. He wishes to continue medication management. He is again denying side effects. He indicates the majority of his symptoms are exacerbated with walking, standing and working, improves with medications, rest and relaxation. Majority of symptoms are also located on the left side, though intermittently on the right. He returns today requesting refill on medications to address lumbar radiculopathy secondary to the displacement of a lumbar intervertebral disk. ALLERGIES: NABUMETONE. CURRENT MEDICATIONS: Hydrocodone/acetaminophen 7.5/325 one tab p.o. q. 8 hours p.r.n. pain, gabapentin 1200 mg b.i.d., omega-3 fish oil 1 tab per day, albuterol 2 puffs q. 4 hours, valacyclovir 1000 mg b.i.d. p.r.n., Elidel cream applied topically twice a day. SOCIAL HISTORY: The patient denies tobacco use. He is a former smoker. Denies IV or illicit drug use. Denies any chronic alcohol use. He is currently working, not receiving Workmen's Compensation nor is he trying to obtain disability benefits. He is unaccompanied today. IMAGING: No new imaging available. PHYSICAL EXAM: VITAL SIGNS: Blood pressure 156/87, pulse 60, respiratory rate 16 and unlabored. The patient 97% on room air. Height 5 feet 6 inches tall, weight 172 pounds, BMI calculated 27.8. [place] [address] PAIN MANAGEMENT CONSULTATION Name: MORRISPAUL PHONG Room #: REG DARCY Batista#: [id number] Admission: 07/05/21 Attend Phys: Avni Ordonez DO Discharge: Date of : 64 Report #: [id number] GENERAL: Well-developed, well-nourished, well-hydrated 60-year-old male appearing stated age, pain is rated today at 8/10. HEENT: Normocephalic, atraumatic. Pupils equal, round and responsive to light. Speech is fluent. The patient deemed an excellent historian. He is wearing a mask in compliance with COVID-19 regulations. EXTREMITIES: Show no clubbing, no cyanosis. No appreciable edema. MUSCULOSKELETAL: Tenderness to palpation is noted over the paraspinal musculature of the lumbar spine. No spinous process tenderness. His gait appears mildly antalgic favoring the left lower extremity over right. Modified Ga[place]len is positive for axial low back pain. Straight leg raising both in the seated and supine positions are negative. Muscle bulk and tone is symmetrical in lower extremities. ASSESSMENT: 1. Symptomatic lumbar radiculopathy. 2. Displacement of lumbar intervertebral disk with radiculopathy. 3. Lumbosacral spondylosis with radiculopathy. 4. Complex medication management utilizing scheduled medications. 5. Opioid dependency. 6. Chronic intractable pain. PLAN: 1. The patient returns today in followup visit for medication management to address ongoing lumbar radicular symptoms involving mainly the left lower extremity and low back with intermittent right lower extremity symptoms. The patient feels the medications are working beneficially for pain control. He is denying side effects of sleepiness, disorientation, confusion, mental slowing or constipation with their use. He and I have reviewed his recent urine drug screen, which unfortunately shows positive for tetrahydrocannabinol. I have advised the patient that the concomitant use of marijuana and opioids is not to be tolerated. I have advised the patient that the tetrahydrocannabinol is an illegal substance in the eyes of the federal government. Even though the patient [place] on the [place] side of the [place], he has no license to obtain the marijuana and even the laws of marijuana in the state of [place] do not trump the federal laws in regard to use along with opioid medications. He needs to discontinue the use of marijuana entirely. We have agreed to provide the patient with refills of medications with the understanding that if any future urine drug screen is positive for any illegal substance, we would have to discontinue the use of opioid medication entirely. He is agreeable with that plan. We reviewed the fact that opiate medications are being used to provide analgesia adequate to support activities of daily living, not attempting to achieve a specific pain score on the 0-10 Visual Analog Scale. The current opiate medications are providing sufficient analgesia to allow the patient to participate in activities of daily living. The patient is not exhibiting any [facility] [address] [place] [address] PAIN MANAGEMENT CONSULTATION Name: PAUL CACERES Room #: [facility] [id number] Admission: 07/05/21 Attend Phys: Avni Ordonez DO Discharge: Date of : 64 Report #: [id number] aberrant behavior suggestive of drug diversion. The patient is not having any adverse reactions to medications. The patient is not suffering from daytime somnolence or mental acuity changes. The patient is managing opiate-induced constipation with appropriate [id number] agents and dietary considerations. The patient was counseled on concern for caution with operating a motor vehicle while using opiate medications. A physical exam was performed and the patient's functional status was evaluated. All patients with back pain were advised against the bed rest greater than 4 days and were advised to return to normal activities. Pain score assessment was noted and the treatment plan was reviewed with the patient. All current medications, both prescribed and OTC were reviewed and reconciled on the electronic medical record. Tobacco screening was accomplished and smoking cessation was advised when indicated. BMI was noted and diet/exercise modification was recommended for all patients following outside normal parameters. I reviewed with the patient today their responsibilities to safeguard prescription medications, reviewed their responsibility to utilize medications only as prescribed by the physician. They are to seek and receive pain medications only from 1 physician group ( [facility]). They are to use 1 pharmacy and keep the clinic informed if they change pharmacies. Their responsibilities include making followup visits in a timely fashion and to avoid abrupt discontinuation of medication usage. Their responsibilities further include bringing their medications (bottles from the pharmacy with residual pills) to the visit for possible confirmation of pill counts and the patient understands it is their responsibility to submit to random drug screens to ensure both that the medications prescribed are present, and that no other controlled substances are present. All prescriptions provided today were generated electronically. 2. The patient was provided prescription of hydrocodone 7.5/325 one tab p.o. every 8 hours p.r.n. for pain. I have given him #90 tablets of the 7.5/325 to take as necessary with release of today and 4 weeks from today, 2 months' worth of medication. The patient was advised he will be undergoing testing again at our followup visit in regard to urine drug screen. Prescriptions were sent via e-scribe to the local pharmacy. 3. The patient was provided once again a copy of his opioid contract with [facility]. He will review the information. He must maintain vigilance in regard to the stipulations of the opioid contract and have clear drug screens from this point forward to maintain opioid medications. The patient understands and will adjust appropriately. We will see him back in 2 months. <ELECTRONICALLY SIGNED> By: Avni Ordonez DO 07/11/21 0835 [id number] Avni Ordonez DO /nt
== END ==
LOC: PAIN 06:47
PROVIDERS: ATTEND Anesthesiology Pain Medicine
DX: M51.16 Intervertebral disc disorders with radiculopathy, lumbar region (principal); M47.26 Other spondylosis with radiculopathy, lumbar region; G89.29 Other chronic pain; M25.551 Pain in right hip; M25.552 Pain in left hip; F11.20 Opioid dependence, uncomplicated; Z79.899 Other long term (current) drug therapy